=== PATIENT | male | born 1930 | race Caucasian/White ===

== ENCOUNTER 2016-07-14 15:13 | Inpatient (IN) | payer OTHER, MEDICARE ==
[~2016-07-14] VITALS: Ht 182.9 cm; Wt 79.8 kg
[~2016-07-14 15:13] MED LIST: ADVIL200 M2 PO; ASPIRIN81 M4 PO; MAGNESIUM OXID400 M1 PO; PERCOCET 5-3251 EACH PO; PLAVIX75 M1 PO
--- NOTE | 2016-07-14 15:33 | NUR ---
PT TO ER WITH COMPLAINTS OF PAIN AND AN INFECTION IN R FOOT. PT STATES THAT HE HAD ANGIOGRAM FRIDAY ON R LEG BY VASCULAR DR ON FRIDAY AND THAT THEY WENT IN AND CLEARED BLOCKAGE, BUT YESTERDAY HIS R FOOT STARTED TO SWELL AND R MIDDLE TOE IS RED AND LOOKS INFECTED
--- NOTE | 2016-07-14 15:48 | NUR ---
PT TO ROOM12, AWAITING PROVIDER EVAL.
--- NOTE | 2016-07-14 16:09 | NUR ---
PT EVALUATED BY MD FAINA. BLOOD DRAWN AND SENT TO LAB-[facility].
--- NOTE | 2016-07-14 16:09 | ED GENERAL ADULT ---
History of Present Illness General Chief Complaint: General Adult Stated Complaint: SENT BY DR BOWEN FOR EVL OF RT FOOT Source: patient, family, old records Exam Limitations: no limitations Vital Signs & Intake/Output Vital Signs & Intake/Output Vital Signs Date Time Temp Pulse Resp B/P Pulse O2 O2 Flow FiO2 Ox Delivery Rate 07/14 1527 97.5 92 18 156/76 97 Room Air Allergies Coded Allergies: No Known Allergies (03/13/16) Reconcile Medications Aspirin (Aspirin*) 81 MG TAB.CHEW 1 TAB PO DAILY HEART HEALTH (Reported) Clopidogrel Bisulfate (Plavix) 75 MG TABLET 1 TAB PO DAILY anti clot Ibuprofen (Advil) 200 MG TABLET 2 TAB PO DAILY PAIN (Reported) Magnesium Oxide 400 MG TABLET 1 TAB PO DAILY HEART (Reported) Oxycodone HCl/Acetaminophen (Percocet 5-325 MG Tablet) 5 MG-325 MG TABLET 1-2 TAB PO Q4-6 PRN PAIN Core Measure Meds Pre-Hospital aspirin Triage Note: PT TO ER WITH COMPLAINTS OF PAIN AND AN INFECTION IN R FOOT. PT STATES THAT HE HAD ANGIOGRAM FRIDAY ON R LEG BY VASCULAR DR ON FRIDAY AND THAT THEY WENT IN AND CLEARED BLOCKAGE, BUT YESTERDAY HIS R FOOT STARTED TO SWELL AND R MIDDLE TOE IS RED AND LOOKS INFECTED Triage Nurses Notes Reviewed? yes Onset: Evening Duration: hour(s):, constant, continues in ED, getting worse Timing: recent history Injury Environment: home Severity: severe Modifying Factors: Improves With: medication, rest. Worsens With: movement. HPI: 4 days prior to admission patient had right lower extremity angiogram with procedure to open obstructed vessel. 1 day prior to admission he complains of increasing swelling redness pain to the right foot. He denies fever chills vomiting diarrhea abdominal pain chest pain shortness breath headache dysuria bleeding. Past History Travel History Traveled to [place] past 21 day No Medical History Any Pertinent Medical History? 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 No Review of Systems Review of Systems Constitutional: Reports: no symptoms. EENTM: Reports: no symptoms. Respiratory: Reports: no symptoms. Cardiovascular: Reports: no symptoms. GI: Reports: no symptoms. Genitourinary: Reports: no symptoms. Musculoskeletal: Reports: see HPI, joint pain, joint swelling. Skin: Reports: see HPI, rash. Neurological/Psychological: Reports: no symptoms. Hematologic/Endocrine: Reports: no symptoms. Immunologic/Allergic: Reports: no symptoms. All Other Systems: Reviewed and Negative Physical Exam Physical Exam General Appearance: well developed/nourished, alert, awake, anxious, moderate distress Head: atraumatic, normal appearance Eyes: Bilateral: normal appearance, PERRL, EOMI. Ears, Nose, Throat: normal pharynx, normal ENT inspection, hearing grossly normal Neck: normal inspection, supple, full range of motion, no midline tenderness Respiratory: normal breath sounds, chest non-tender, no respiratory distress, quiet respiration, lungs clear Cardiovascular: regular rate/rhythm, normal peripheral pulses, norml femoral pulses equa Peripheral Pulses: 4+ carotid (R), 4+ carotid (L) Gastrointestinal: normal bowel sounds, soft, non-tender, no organomegaly Back: normal inspection, normal range of motion Extremities: pedal edema, slow capillary refill, swelling, tenderness Neurologic/Psych: no motor/sensory deficits, awake, alert, oriented x 3, normal 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 Skin: rash, erythema edema right middle toe the lateral foot and ankle tips of second and third toes with gangrenous appearing black discoloration Lymphatic: no anterior cervical amy Core Measures ACS in differential dx? No CVA/TIA Diagnosis: No Severe Sepsis Present: No Septic Shock Present: No Progress Differential Diagnoses I considered the following diagnoses in my evaluation of the patient: Cellulitis peripheral arterial disease osteomyelitis Plan of Care: Orders Procedure Date/time Status Regular Diet 07/14 D Active Patient Data 07/14 1801 Active OXYGEN SETUP (GEN) 07/14 1742 Active Saline Lock 07/14 1742 Active Admit to inpatient 07/14 174 Active Vital Signs 07/14 1743 Active Activity/Ambulation 07/14 174 Active BLOOD CULTURE 07/14 174 Active Code Status 07/14 174 Active HIGH SENSITIVITY CRP 07/14 1559 Complete WESTERGREN SED RATE 07/14 1559 Complete COMPREHENSIVE METABOLIC PANEL 07/14 155 Complete CBC WITHOUT DIFFERENTIAL 07/14 155 Complete Current Medications Sig/Ramon Start time Last Medication Dose Stop Time Status Admin Morphine Sulfate 4 MG ONCE ONE 07/14 1814 UNVr (Morphine) 07/15 1815 Laboratory Tests 07/14/16 1610: Anion Gap 11, Estimated GFR > 60, BUN/Creatinine Ratio 21.3, Glucose 187 H, Calcium 9.4, Total Bilirubin 0.6, AST 23, ALT 32, Alkaline Phosphatase 74, C- React Prot High Sens > 15.0 H, Total Protein 7.1, Albumin 4.2, Globulin 2.9, Albumin/Globulin Ratio 1.4, CBC w Diff NO MAN DIFF REQ, RBC 4.68 L, MCV 84.6, MCH 28.6, RDW 14.9 H, MPV 6.6 L, Gran % 78.3 H, Lymphocytes % 13.1 L, Monocytes % 7.6, Eosinophils % 0.7, Basophils % 0.3, Absolute Granulocytes 4.3, Absolute Lymphocytes 0.7 L, Absolute Monocytes 0.4, Absolute Eosinophils 0, Absolute Basophils 0, PUBS MCHC 33.8, ESR Westergren 63 H Microbiology 07/14 1800 BLOOD: Blood Culture - RECD 07/14 1750 BLOOD: Blood Culture - RECD Diagnostic Imaging: Viewed by Me: Radiology Read. Discussed w/RAD: Radiology Read. Radiology Impression: Soft tissue swelling of the right foot without soft tissue emphysema. Within the forefoot, soft tissue swelling is most pronounced in the third toe. There is a small area of apparent demineralization in the lateral aspect of the tuft of the third distal phalanx. Osteomyelitis is suspected. Initial ED EKG: none Departure Departure Time of Disposition: 1742 Disposition: STILL A PATIENT Condition: Stable Clinical Impression Primary Impression: Acute osteomyelitis of toe of right foot Referrals: ISA DERAS,EVELYN Spears (PCP/Family) Departure Forms: Customer Survey General Discharge Information Admission Note Spoke With: EFREN WATERS MD Documentation of Exam: Documentation of any treatments & extenuating circumstances including Concerns Regarding Discharge (functional status, medication knowledge or non-compliance, living conditions, etc.) that warrant an admission rather than observation: IV antibiotics analgesia podiatry evaluation vascular surgery evaluation follow cultures medication adjustment continuing care discharge planning Critical Care Note Critical Care Note Critical Care Time: non-applicable
--- NOTE | 2016-07-14 16:14 | NUR ---
RAD AT BEDSIDE FOR FOOT XRAY.
[2016-07-14 16:18] LABS: ABSOLUTE BASOPHIL COUNT 0 /CUMM (0.0-0.2); ABSOLUTE EOSINOPHIL COUNT 0 /CUMM (0.0-0.7); ABSOLUTE GRANULOCYTE CT 4.3 /CUMM (1.4-6.5); ABSOLUTE LYMPH COUNT 0.7 /CUMM (1.2-3.4); ABSOLUTE MONOCYTE COUNT 0.4 /CUMM (0.10-0.60); HEMATOCRIT 39.6 % (42-52); MEAN CORPUSCULAR HGB 28.6 PG (27.0-31.0); MEAN CORPUSCULAR HGB CONC 33.8 G/DL (33.0-37.0); MEAN CORPUSCULAR VOLUME 84.6 FL (80.0-94.0); MEAN PLATELET VOLUME 6.6 FL (7.4-10.4); PLATELET COUNT 209 /CUMM (130-400); RBC DISTRIBUTION WIDTH 14.9 % (11.5-14.5); RED BLOOD CELL CT 4.68 /CUMM (4.70-6.10); WHITE BLOOD CELL COUNT 5.5 /CUMM (4.8-10.8)
[2016-07-14 16:21] LABS: BASOPHIL % 0.3 % (0.0-2.0); EOSINOPHIL % 0.7 % (0-5); GRANULOCYTE % 78.3 % (42.2-75.2)
--- NOTE | 2016-07-14 16:50 | RADIOLOGY REPORT ---
EXAMINATION: XR FOOT, RIGHT CLINICAL INFORMATION: Peripheral vascular disease. Gangrene at tip of the third toe and edema/erythema of the lateral midfoot. Evaluate for osteomyelitis. COMPARISON: None TECHNIQUE: Right foot, 3 views FINDINGS: Soft there is soft tissue swelling of the foot and, within the forefoot, soft tissue swelling is most pronounced in the third toe. No soft tissue emphysema. There is an area of cortical bone at the lateral aspect of the tuft of the distal phalanx of the third toe that is suboptimally defined. Although there could be osteopenia in reaction to overlying soft tissue inflammation, relatively early osteomyelitis involving the distal phalanx could produce this appearance. There is no osteosclerosis or periostitis. Bones have normal alignment throughout the foot. Enthesophyte formation is seen at the dorsal and plantar surface of the calcaneus, and there is intratendinous ossification of the Achilles at its insertion. IMPRESSION: Soft tissue swelling of the right foot without soft tissue emphysema. Within the forefoot, soft tissue swelling is most pronounced in the third toe. There is a small area of apparent demineralization in the lateral aspect of the tuft of the third distal phalanx. Osteomyelitis is suspected.
--- NOTE | 2016-07-14 17:43 | NUR ---
MD FAINA AT BEDSIDE TO DISCUSS POC.
--- NOTE | 2016-07-14 18:03 | NUR ---
BLOOD CULTURES 2 SETS DRAWN AND SENT TO LAB. UNASYN INFUSING PER EMAR.
--- NOTE | 2016-07-14 18:04 | History & Physical ---
General Information and HPI MD Statement: I have seen and personally examined ZARINA CANAS and documented this H&P. The patient is a 86 year old M who presented with a patient stated chief complaint of [right foot swelling and pain]. Source of Information: patient Exam Limitations: no limitations History of Present Illness: Mr. Canas is a 86-year-old gentleman with a PMH of peripheral neuropathy, osteoarthritis, PVD/PAD S/P left popliteal to posterior tibial artery bypass in the setting of left great toe gangrene (02/16/2016), recent angiogram on 07/11/2016 for right middle toe infection who presents with complaints of worsening pain and redness in his toe. Since the angiogram on reports doing well and denied any fever, chills or worsening pain. He had been able to ambulate without any limitations however this afternoon he had a sudden onset and worsening pain that he described as a stabbing/burning sensation in the middle toe on the right foot that made it difficult for him to walk due to exquisite tenderness in the balls of his feet. He did take 1 Percocet which was able to relieve the pain from 9/10 down to 2/ 10. He contacted his vascular surgeon Dr. Bolton and was referred to the ER for further evaluation. He denies any nausea, vomiting, abdominal pain, fevers, chills, chest pain, palpitations, sweating, drainage from his toe. Allergies/Medications Allergies: Coded Allergies: No Known Allergies (03/13/16) Home Med list Aspirin (Aspirin*) 81 MG TAB.CHEW 1 TAB PO DAILY HEART HEALTH (Reported) Clopidogrel Bisulfate (Plavix) 75 MG TABLET 1 TAB PO DAILY anti clot Docusate Sodium (Stool Softener) 100 MG CAPSULE 1 CAP PO DAILY STOOL SOFTENER (Reported) Magnesium Oxide 400 MG TABLET 1 TAB PO DAILY HEART (Reported) Oxycodone HCl/Acetaminophen (Oxycodone-Acetaminophen 5-325) 5 MG-325 MG TABLET 1 TAB PO PRN PAIN (Reported) Past History Travel History Traveled to [place] past 21 day No Medical History Neurological: peripheral neuropathy EENT: NONE Cardiovascular: NONE Respiratory: NONE Gastrointestinal: NONE Hepatic: NONE Renal: NONE Musculoskeletal: ARTHRITIS Psychiatric: NONE Endocrine: NONE Blood Disorders: NONE 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 EENTM: Reports: no symptoms. Cardiovascular: Reports: no symptoms. Respiratory: Reports: no symptoms. GI: Reports: no symptoms. Genitourinary: Reports: no symptoms. Musculoskeletal: Reports: see HPI. Skin: Reports: see HPI. Neurological/Psychological: Reports: see HPI. Exam & Diagnostic Data Last 24 Hrs of Vital Signs/I&O Vital Signs Date Time Temp Pulse Resp B/P Pulse O2 O2 Flow FiO2 Ox Delivery Rate 07/14 1847 97.2 95 18 154/75 98 Room Air 07/14 1527 97.5 92 18 156/76 97 Room Air Intake & Output 07/14 1600 07/14 0800 07/14 0000 Intake Total Output Total Balance Patient 175 lb Weight Physical Exam General Appearance Alert, Cooperative, No Acute Distress Skin diffuse erythema over the right middle great toe spread proximally towards the dorsum of the right foot approximately 12 cm. Skin on the right foot is slightly warmer to touch. Posterior tibial pulses are present bilaterally HEENT Mucous Membr. moist/pink, Left eye strabismus. 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 Cardiovascular Regular Rate, Normal S1, Normal S2 Lungs Clear to Auscultation, Normal Air Movement Abdomen Normal Bowel Sounds, Soft, No Tenderness Neurological Normal Speech, Normal Tone, Sensation Intact Extremities Edema localized on the distal aspects of the feet Last 24 Hrs of Labs/Justin: Laboratory Tests 07/14/16 1610: Anion Gap 11, Estimated GFR > 60, BUN/Creatinine Ratio 21.3, Glucose 187 H, Calcium 9.4, Total Bilirubin 0.6, AST 23, ALT 32, Alkaline Phosphatase 74, C- React Prot High Sens > 15.0 H, Total Protein 7.1, Albumin 4.2, Globulin 2.9, Albumin/Globulin Ratio 1.4, CBC w Diff NO MAN DIFF REQ, RBC 4.68 L, MCV 84.6, MCH 28.6, RDW 14.9 H, MPV 6.6 L, Gran % 78.3 H, Lymphocytes % 13.1 L, Monocytes % 7.6, Eosinophils % 0.7, Basophils % 0.3, Absolute Granulocytes 4.3, Absolute Lymphocytes 0.7 L, Absolute Monocytes 0.4, Absolute Eosinophils 0, Absolute Basophils 0, PUBS MCHC 33.8, ESR Westergren 63 H Microbiology 07/14 1800 BLOOD: Blood Culture - RECD 07/14 1750 BLOOD: Blood Culture - RECD Diagnostic Data Other Results X-ray of right foot: Soft tissue swelling of the right foot without soft tissue emphysema. Within the forefoot, soft tissue swelling is most pronounced in the third toe. There is a small area of apparent demineralization in the lateral aspect of the tuft of the third distal phalanx. Osteomyelitis is suspected. Assessment/Plan Assessment: 86-year-old gentleman with a PMH of peripheral neuropathy, osteoarthritis, PVD/ PAD S/P left popliteal to posterior tibial artery bypass in the setting of left great toe gangrene (02/16/2016), recent angiogram on 07/11/2016 for right middle toe infection who presents with complaints of worsening pain and redness in his toe. VS admission: BP 156/76, HR 92, RR 18, SPO2 97% on RA, T 97.5 Pertinent labs: WBC 5.5, H&H 13.4/39.6, platelets 209, BUN/CR 17/0.8, glucose 187 CRP: > 15.0 ESR: 63 Problem list: 1. Right middle toe cellulitis/questionable osteomyelitis 2. PVD/PAD with recent angiogram 3. Pain management Plan: * Admit to general medicine * We'll plan to obtain MRI of the right foot in the a.m. to better assess for possible osteomyelitis * Vascular surgery is on board at this time * We'll obtain a dietary consult with Dr. Elizabeth in the a.m. * We'll keep the patient NPO pending discussion with Dr. Elizabeth for possible intervention * Patient has been seen by Dr. Ybarra in the past. Records indicate a Hilda scan nuclear stress test in October 2015 that was normal. Will obtain an EKG in the morning and follow-up with cardiology for risk stratification if there is any plan for debridement in the OR * Coag the a.m. * Patient did receive 1 dose of Unasyn in the ED prior to blood cultures being drawn. In setting of no leukocytosis, stable vital signs we'll hold off antibiotics pending MRI results * Lipid panel in the a.m. * Pain management with Tylenol, Percocet, morphine for escalating pain * Continue with aspirin 81 mg and Plavix 75 mg daily for history of PVD * NPO. Gentle hydration with NS 75 mL 1 * DVT prophylaxis: No ALPs in the setting of PVD. We'll hold off pharmacological anticoagulation until MRI results and discussion with Dr Gold for possible OR * CODE STATUS: DNR/DNI AM TEAM: Start pharmacological anticoagulation if no plan to go to OR As Ranked By This Provider Problem List: 1. Acute osteomyelitis of toe of right foot 2. PAD (peripheral artery disease) 3. Pain management Core Measures/Miscellaneous Acute Coronary Syndrome ACS Diagnosis: No Cerebrovascular Accident CVA/TIA Diagnosis: No Congestive Heart Failure CHF Diagnosis: No Venous Thromboembolism VTE Risk Factors: Age > 40 [facility] prophylaxis d/t: Lower limb ischemia No VTE Pharm Prophylaxis d/t: Medical contraindication VTE Diagnosis: No VTE Type: NONE VTE Confirmed by (Test): NONE Comment: Planned OR tomorrow Severe Sepsis Severe Sepsis Present: No Septic Shock Septic Shock Present: No Miscellaneous Documentation Attending Case Discussed With: EFREN WATERS MD Primary Care Physician: EVELYN MOSS MD Patient sees these Specialists Dr Bolton (vascular surgeon) Level of Patient Care: General Medicine Resident Review Statement Resident Statement: examined this patient, discussed with sport internship, agreed with sport internship, reviewed EMR data (avail), discussed with nursing, reviewed images
--- NOTE | 2016-07-14 18:16 | Admission Certification ---
Admission Certification Certification Statement - As attending physician, I certify that at the time of - admission, based on clinical presentation, severity of - symptoms, need for further diagnostic testing and - therapeutic interventions, and risk of adverse outcomes - without in-hospital treatment, in my clinical assessment, - this patient requires an acute hospital stay for a minimum - of two nights or longer. I have also considered psychsocial - factors such as support system, advanced age, financial - issues, cognitive issues, and failed out-patient treatments, - past re-admission history, safety of patient, and lack of - compliance as applicable. Specific rationale supporting this admission is: Swelling of the right middle toe red and a patient with peripheral vascular disease x-ray suggestive of osteomyelitis
--- NOTE | 2016-07-14 18:20 | PN- Att Addend ---
Attending Addendum Attending Brief Note 86-year-old white male with peripheral vascular disease just had seen his vascular doctor apparently had studies in the right leg. For the last able to the right middle toe is red and swollen and tender, comes to the ER. His affect febrile his white count is normal but the x-ray of the foot showed that the toe swollen the bone has some abnormalities very possibly related to osteomyelitis patient will be admitted will be pancultured will be seen by vascular and podiatry. If necessary we'll start antibiotic therapy. Laboratory Tests 07/14 1610 Chemistry Sodium (137 - 145 mmol/L) 140 Potassium (3.5 - 5.1 mmol/L) 4.1 Chloride (98 - 107 mmol/L) 99 Carbon Dioxide (22 - 30 mmol/L) 30 Anion Gap (5 - 16) 11 BUN (9 - 20 mg/dL) 17 Creatinine (0.7 - 1.2 mg/dL) 0.8 Estimated GFR (>60 ml/min) > 60 BUN/Creatinine Ratio (7 - 25 %) 21.3 Glucose (65 - 99 mg/dL) 187 H Calcium (8.4 - 10.2 mg/dL) 9.4 Total Bilirubin (0.2 - 1.3 mg/dL) 0.6 AST (17 - 59 U/L) 23 ALT (21 - 72 U/L) 32 Alkaline Phosphatase (< 127 U/L) 74 C-React Prot High Sens (1.0 - 3.0 mg/L) > 15.0 H Total Protein (6.3 - 8.2 g/dL) 7.1 Albumin (3.5 - 5.0 g/dL) 4.2 Globulin (1.9 - 4.2 gm/dL) 2.9 Albumin/Globulin Ratio (1.1 - 2.2 %) 1.4 Hematology CBC w Diff NO MAN DIFF REQ WBC (4.8 - 10.8 /CUMM) 5.5 RBC (4.70 - 6.10 /CUMM) 4.68 L Hgb (14.0 - 18.0 G/DL) 13.4 L Hct (42 - 52 %) 39.6 L MCV (80.0 - 94.0 FL) 84.6 MCH (27.0 - 31.0 PG) 28.6 RDW (11.5 - 14.5 %) 14.9 H Plt Count (130 - 400 /CUMM) 209 MPV (7.4 - 10.4 FL) 6.6 L Gran % (42.2 - 75.2 %) 78.3 H Lymphocytes % (20.5 - 51.1 %) 13.1 L Monocytes % (1.7 - 9.3 %) 7.6 Eosinophils % (0 - 5 %) 0.7 Basophils % (0.0 - 2.0 %) 0.3 Absolute Granulocytes (1.4 - 6.5 /CUMM) 4.3 Absolute Lymphocytes (1.2 - 3.4 /CUMM) 0.7 L Absolute Monocytes (0.10 - 0.60 /CUMM) 0.4 Absolute Eosinophils (0.0 - 0.7 /CUMM) 0 Absolute Basophils (0.0 - 0.2 /CUMM) 0 PUBS MCHC (33.0 - 37.0 G/DL) 33.8 ESR Westergren (0 - 10 MM) 63 H
--- NOTE | 2016-07-14 18:22 | NUR ---
PT MEDICATED WITH MORPHINE PER EMAR FOR R FOOT PAIN 11/18. SURGICAL PA AT BEDSIDE FOR PT EVAL.
[2016-07-14] MEDS ORDERED: STOOL SOFTENER100 M3 PO (18:35)
[2016-07-14] MEDS ORDERED: OXYCODONE-ACET1 EACH PO (18:36)
--- NOTE | 2016-07-14 18:58 | Cons- Vascular Surgery ---
General Information and HPI Consulting Request Date of Consult: 07/14/16 Requested By: EFREN OROURKE MD Reason for Consult: history of peripheral vascular disease with noew R 3rd toe questionable osteo Source of Information: patient Exam Limitations: no limitations History of Present Illness: Mr Antoine is an 86yo male with a history of PAD. He underwent a left fem/tib bypass in March of 2016. He was doing well on asa 81mg daily and plavix 75mg po daily while having an ulcer on the R 3rd toe followed by prisca. About one month ago, he had a debridement of this toe at [facility]. He was discharged from wound care follow up about 2 weeks ago. He went to see Dr Elizabeth of podiatry last week because he wanted to follow up with him as he had met him at his prior procedure. This prompted a consult back to Dr Bolton of the Vascular service. 4 days ago, an angio was performed by Dr Marie and per the patient a "new device" was used which helped open up a blockage. Since yesterday, he noticed worsening discoloration and pain of the 3rd R toe. Today the pain became severe so he contacted the Vascular Surgery service and spoke to Dr Cheung. He the presented to [facility] and an Xray demonstrates questionable osteo. He is therefore being admitted to Dr Orourke (covering for Dr Chairez) for IV antibiotics and vascular is contacted for recommendations. On examination, he is comfortable after having morphine. No specific complaints at this time. Allergies/Medications Allergies: Coded Allergies: No Known Allergies (03/13/16) Home Med List: Aspirin (Aspirin*) 81 MG TAB.CHEW 1 TAB PO DAILY HEART HEALTH (Reported) Clopidogrel Bisulfate (Plavix) 75 MG TABLET 1 TAB PO DAILY anti clot Docusate Sodium (Stool Softener) 100 MG CAPSULE 1 CAP PO DAILY STOOL SOFTENER (Reported) Magnesium Oxide 400 MG TABLET 1 TAB PO DAILY HEART (Reported) Oxycodone HCl/Acetaminophen (Oxycodone-Acetaminophen 5-325) 5 MG-325 MG TABLET 1 TAB PO PRN PAIN (Reported) Past History Medical History Neurological: peripheral neuropathy EENT: NONE Cardiovascular: peripheral arterial disease BLE Respiratory: NONE Gastrointestinal: NONE Hepatic: NONE Renal: NONE Musculoskeletal: ARTHRITIS Psychiatric: NONE Endocrine: NONE Blood Disorders: NONE 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 Home ETOH Use: denies use Illicit Drug Use: denies illicit drug use Functional Ability ADLs Independent: dressing, eating, toileting, bathing. Ambulation: independent IADLs Independent: shopping, housework, finances, food prep, telephone, transportation , medication admin. Review of Systems Review of Systems: Pain at 3rd right toe - see HPI, otherwise unremarkable Exam & Diagnostic Data Vital Signs and I&O Vital Signs Date Time Temp Pulse Resp B/P Pulse O2 O2 Flow FiO2 Ox Delivery Rate 07/14 1527 97.5 92 18 156/76 97 Room Air Intake & Output 07/14 1600 07/14 0807/14 0000 07/13 1600 07/13 0807/13 0000 Intake Total Output Total Balance Patient 175 lb Weight Physical Exam: General: alert and oriented times three Ext: warm, no edema LLE - 2+ palpable popliteal, 1+ palpable PT, DP non-palp faintly dopplerable RLE - 2+ palpable popliteal, faintly dopplerable DP, non dopplerable PT 3rd toe discolored entirely - deep red, tender, positive movement, no swelling, small ulceration at plantar tip with eschar, no drainage, mild erythema extending lateral to toe to mid foot Last 24 Hours of Labs: Laboratory Tests 07/14 1610 Chemistry Sodium (137 - 145 mmol/L) 140 Potassium (3.5 - 5.1 mmol/L) 4.1 Chloride (98 - 107 mmol/L) 99 Carbon Dioxide (22 - 30 mmol/L) 30 Anion Gap (5 - 16) 11 BUN (9 - 20 mg/dL) 17 Creatinine (0.7 - 1.2 mg/dL) 0.8 Estimated GFR (>60 ml/min) > 60 BUN/Creatinine Ratio (7 - 25 %) 21.3 Glucose (65 - 99 mg/dL) 187 H Calcium (8.4 - 10.2 mg/dL) 9.4 Total Bilirubin (0.2 - 1.3 mg/dL) 0.6 AST (17 - 59 U/L) 23 ALT (21 - 72 U/L) 32 Alkaline Phosphatase (< 127 U/L) 74 C-React Prot High Sens (1.0 - 3.0 mg/L) > 15.0 H Total Protein (6.3 - 8.2 g/dL) 7.1 Albumin (3.5 - 5.0 g/dL) 4.2 Globulin (1.9 - 4.2 gm/dL) 2.9 Albumin/Globulin Ratio (1.1 - 2.2 %) 1.4 Hematology CBC w Diff NO MAN DIFF REQ WBC (4.8 - 10.8 /CUMM) 5.5 RBC (4.70 - 6.10 /CUMM) 4.68 L Hgb (14.0 - 18.0 G/DL) 13.4 L Hct (42 - 52 %) 39.6 L MCV (80.0 - 94.0 FL) 84.6 MCH (27.0 - 31.0 PG) 28.6 RDW (11.5 - 14.5 %) 14.9 H Plt Count (130 - 400 /CUMM) 209 MPV (7.4 - 10.4 FL) 6.6 L Gran % (42.2 - 75.2 %) 78.3 H Lymphocytes % (20.5 - 51.1 %) 13.1 L Monocytes % (1.7 - 9.3 %) 7.6 Eosinophils % (0 - 5 %) 0.7 Basophils % (0.0 - 2.0 %) 0.3 Absolute Granulocytes (1.4 - 6.5 /CUMM) 4.3 Absolute Lymphocytes (1.2 - 3.4 /CUMM) 0.7 L Absolute Monocytes (0.10 - 0.60 /CUMM) 0.4 Absolute Eosinophils (0.0 - 0.7 /CUMM) 0 Absolute Basophils (0.0 - 0.2 /CUMM) 0 PUBS MCHC (33.0 - 37.0 G/DL) 33.8 ESR Westergren (0 - 10 MM) 63 H Imaging Results: R foot XR Soft tissue swelling of the right foot without soft tissue emphysema. Within the forefoot, soft tissue swelling is most pronounced in the third toe. There is a small area of apparent demineralization in the lateral aspect of the tuft of the third distal phalanx. Osteomyelitis is suspected. Assessment/Plan Assessment/Plan 86 yo male with severe pad now presents after angio with questionable osteo of 3rd Right toe afebrile, normal wbc Discussed with Dr Cheung who has also spoken to the patient He is being admitted to the medical service arterial duplex ordered - will follow up - likely to be performed tomorrow Dr Bolton to see in am continue aspirin/plavix and all home meds further recommendations to follow Copies To: JAX DERAS,ABA LUCAS Consult Acknowledgment - Thank you for your consult request.
--- NOTE | 2016-07-14 19:04 | NUR ---
PT ASSIGNED TO ROOM 235-2
--- NOTE | 2016-07-14 19:32 | NUR ---
REPORT GIVEN TO ENMA BURGER
--- NOTE | 2016-07-14 19:38 | NUR ---
[facility] CALLED FOR TRANSPORT.
[2016-07-14 22:21] VITALS: BP 142/70
--- NOTE | 2016-07-14 22:26 | NUR ---
PATIENT ARRIVED TO UNIT AT 2007 VIA STRETCHER. PATIENT A+Ox3 AND ON RA. PT ORIENTED TO CALL CUMMINGS, ROOM, STAFF, BATHROOM, SURROUNDINGS. ADMISSION ASSESSMENT COMPLETE. PT COMPLAINED OF PAIN TO R MIDDLE TOE; MEDICATED PER EMAR. NO FURTHER COMPLAINTS AT THIS TIME. WILL CONTINUE TO CLOSELY MONITOR.
--- NOTE | 2016-07-15 07:10 | PN- Housestaff ---
TONY DERAS,[facility] 07/15/16 0710: Subjective Follow-up For: right foot swelling and pain Subjective: I saw and examined Mr Antoine this am, he is awake and oriented in no distress, has increased pain in the right third toe that is controlled by morphine. Denies cough, wheezing, SOB, reports abdominal pain off and on but no changes in stool, pain not related to food. denies chest pain, palpitation, or dizziness. Review of Systems Constitutional: Denies: chills, fever, weakness. 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 Cardiovascular: Denies: chest pain, palpitations. Respiratory: Denies: cough, short of breath, sputum production. Gastrointestinal: Reports: abdominal pain. Denies: bloating, constipation, nausea, bloody stool, changes in stool, vomiting. Genitourinary: Reports: no symptoms. Musculoskeletal: Reports: joint pain (right 3rd toe pain). Denies: back pain. Skin: Reports: change in skin color, erythema, lesions. Neurological/Psychological: Reports: no symptoms. Objective Last 24 Hrs of Vital Signs/I&O Vital Signs Date Time Temp Pulse Resp B/P Pulse O2 O2 Flow FiO2 Ox Delivery Rate 07/15 0711 98.8 98 20 144/88 96 Room Air 07/14 2221 98.0 88 20 142/70 97 Room Air 07/14 1847 97.2 95 18 154/75 98 Room Air 07/14 1527 97.5 92 18 156/76 97 Room Air Intake & Output 07/15 1600 / 0800 07/15 0000 Intake Total 600 560 Output Total 300 Balance 300 560 Intake, IV 600 100 Intake, Oral 0 460 Output, Urine 300 Patient 80.739 kg Weight Physical Exam General Appearance: Alert, Oriented X3, Cooperative, No Acute Distress Skin: there is erythema and tenderness of the entire right 3rd toe with necrotic ulcer at the top, there is erythema 1x1 cm on the left 4th toe. HEENT: Atraumatic, left eye blindness. Neck: Supple Cardiovascular: Regular Rate, Normal S1, Normal S2, No Murmurs Lungs: Clear to Auscultation, Normal Air Movement Abdomen: Soft, No Tenderness Neurological: Normal Speech, Normal Tone Extremities: No Edema, Normal Pulses Vascular: Pulses Symmetrical Current Medications: Current Medications Sig/Ramon Start time Last Medication Dose Route Stop Time Status Admin Acetaminophen 650 MG Q6P PRN 07/14 1914 AC PO Ampicillin Sodium/ 0 .STK-MED ONE 07/14 173 DC Sulbactam Sodium .ROUTE Ampicillin Sodium/ 3,000 MG ONCE ONE 07/14 173 DC 07/14 Sulbactam Sodium IV 07/14 175 1803 Sodium Chloride 100 ML Aspirin 81 MG DAILY 07/15 1000 AC PO Clopidogrel Bisulfate 75 MG DAILY 07/15 1000 AC PO Magnesium Oxide 400 MG DAILY 07/15 1000 AC PO Morphine Sulfate 2 MG Q4P PRN 07/14 1914 AC 07/15 IV 0229 Morphine Sulfate 4 MG ONCE ONE 07/14 1814 DC / IV 07/14 181 182 Morphine Sulfate 0 .STK-MED ONE 07/14 1809 DC .ROUTE Oxycodone/ 1 TAB Q6P PRN 07/14 1914 AC 07/14 Acetaminophen PO 2053 Patient Medication 1 UNIT ONE NR 07/14 1914 DC Teaching ED 07/14 1930 Sodium Chloride 1,000 ML Q13H 07/14 213 AC 07/14 IV 07/15 1029 2201 Last 24 Hrs of Lab/Justin Results Last 24 Hrs of Labs/Mics: Laboratory Tests 07/15/16 0722: Sodium Pending, Potassium Pending, Chloride Pending, Carbon Dioxide Pending, Anion Gap Pending, BUN Pending, Creatinine Pending, BUN/Creatinine Ratio Pending , Triglycerides Pending, Cholesterol Pending, LDL Cholesterol, Calc Pending, HDL Cholesterol Pending, Cholesterol/HDL Ratio Pending, PT 12.2, INR 1.16, CBC w Diff Pending, WBC Pending, RBC Pending, Hgb Pending, Hct Pending, MCV Pending, MCH Pending, RDW Pending, Plt Count Pending, MPV Pending, PUBS MCHC Pending 07/14/16 1610: Anion Gap 11, Estimated GFR > 60, BUN/Creatinine Ratio 21.3, Glucose 187 H, Calcium 9.4, Total Bilirubin 0.6, AST 23, ALT 32, Alkaline Phosphatase 74, C- React Prot High Sens > 15.0 H, Total Protein 7.1, Albumin 4.2, Globulin 2.9, Albumin/Globulin Ratio 1.4, CBC w Diff NO MAN DIFF REQ, RBC 4.68 L, MCV 84.6, MCH 28.6, RDW 14.9 H, MPV 6.6 L, Gran % 78.3 H, Lymphocytes % 13.1 L, Monocytes % 7.6, Eosinophils % 0.7, Basophils % 0.3, Absolute Granulocytes 4.3, Absolute Lymphocytes 0.7 L, Absolute Monocytes 0.4, Absolute Eosinophils 0, Absolute Basophils 0, PUBS MCHC 33.8, ESR Westergren 63 H Microbiology 07/14 1800 BLOOD: Blood Culture - RECD 07/14 1750 BLOOD: Blood Culture - RECD Assessment/Plan Assessment: 86-year-old gentleman with a PMH of peripheral neuropathy, osteoarthritis, PVD/ PAD S/P left popliteal to posterior tibial artery bypass in the setting of left great toe gangrene (02/16/2016), recent angiogram on 07/11/2016 for right middle toe infection who presents with complaints of worsening pain and redness in his toe. VS admission: BP 156/76, HR 92, RR 18, SPO2 97% on RA, T 97.5 Pertinent labs: WBC 5.5, H&H 13.4/39.6, platelets 209, BUN/CR 17/0.8, glucose 187 CRP: > 15.0 ESR: 63 Lipid panel shows LDL of 67 and HDL of 42. PT:12.2, INR 1.16. Problem list: 1. Right middle toe cellulitis/questionable osteomyelitis 2. PVD/PAD with recent angiogram 3. Pain management Plan: * Plan pending on Surgery (podiatry) to take the patient to the OR. Dr. Elizabeth saw the patient this pm and told us that he won't take him to the OR today. WIll follow his recommendations. (MRI of the right foot is consistent with osteomyelitis.) * Vascular surgery is on board * Patient has been seen by Dr. Ybarra in the past. Records indicate a Hilda scan nuclear stress test in October 2015 that was normal. Cardiology to see the patient for risk stratification if there is any plan for debridement in the OR * Patient did receive 1 dose of Unasyn in the ED prior to blood cultures being drawn. In setting of no leukocytosis, stable vital signs we'll hold off antibiotics pending MRI results. * Pain management with Tylenol, Percocet, morphine for escalating pain * Continue with aspirin 81 mg and Plavix 75 mg daily for history of PVD * DVT prophylaxis: No ALPs in the setting of PVD. We'll hold off pharmacological anticoagulation for possible OR tomorrow am. * CODE STATUS: DNR/DNI Problem List: 1. Acute osteomyelitis of toe of right foot 2. Pain management 3. PAD (peripheral artery disease) 4. S/P femoral-tibial bypass Pain Ratin Pain Location: right middle toe Pain Goal: Pain 4 or less Pain Plan: Tylenol, percocet, morphine Tomorrow's Labs & Rationales: CBC (anemia) EVELYN MOSS MD 07/15/16 1747: Attending MD Review Statement Attending Statement Attending MD Statement: examined this patient, discuss w/resident/PA/PAINTING CONTRACTOR, agreed w/resident/PA/PAINTING CONTRACTOR, reviewed EMR data (avail), reviewed images, amended to note Attending Assessment/Plan: Mr. Antoine was interviewed and examined. His EMR was reviewed including consultations from general surgery, vascular surgery, and podiatry. He remains afebrile and without leukocytosis. Examination of his right foot reveals edema and erythema with distal dry gangrene of his third toe. Petechial rash on the dorsum of his foot is equivocally improved. MRI is consistent with acute osteomyelitis of the distal tuft of the distal phalanx. We are planning an excisional biopsy with cultures in the a.m. We should continue to withhold antibiotics pending obtaining her cultures. We will speak with infectious disease concerning initiation and proper course of antibiotics post his procedure. phalanx. We are planning an excisional biopsy with cultures in the a.m. We should continue to withhold antibiotics pending obtaining her cultures. We will speak with infectious disease concerning initiation and proper course of antibiotics post his procedure.
[2016-07-15 07:11] VITALS: BP 144/88
[2016-07-15 08:18] LABS: PT 12.2 SEC (9.4-12.5)
--- NOTE | 2016-07-15 08:41 | PN- General Surgery ---
Subjective Subjective: Right third toe possible osteomyelitis/cellulitis. Awaiting arterial ultrasound right lower leg and MRI right foot, scheduled today. Patient is having moderate to severe pain requiring IV morphine overnight and this morning. Upon my evaluation his pain is controlled after receiving the IV morphine. He denies any fever chills flulike illness nausea or vomiting. Objective Vital Signs and I&Os Vital Signs Date Time Temp Pulse Resp B/P Pulse O2 O2 Flow FiO2 Ox Delivery Rate 07/15 0711 98.8 98 20 144/88 96 Room Air 07/14 2221 98.0 88 20 142/70 97 Room Air 07/14 1847 97.2 95 18 154/75 98 Room Air 07/14 1527 97.5 92 18 156/76 97 Room Air Intake & Output 07/15 1600 07/15 0800 07/15 0000 07/14 1600 07/14 0800 07/14 0000 Intake Total 600 560 Output Total 300 Balance 300 560 Intake, IV 600 100 Intake, Oral 0 460 Output, Urine 300 Patient 178 lb 175 lb Weight Physical Exam: General: alert and oriented times three Ext: warm, no edema RLE - 2+ palpable popliteal, dopplerable DP, non dopplerable PT 3rd toe dorsum with moderate erythema, plantar service with mild erythema. Ulceration at the distal phalanx, possible early dry gangrene. Small amount of swelling noted throat the toe and into the dorsum of the foot with mild erythema that has been contained within the previously outlined in pen marking. There is no discharge. Assessment/Plan Assessment/Plan Right third toe possible osteomyelitis and dry gangrene at the distal phalanx. -Awaiting performance and results of MRI right foot and arterial arterial duplex scan -Dr. Elizabeth from podiatry to see -Antibiotics held per medicine -Continue antiplatelet therapy with 75 mg of Plavix and 81 mg aspirin -Nothing by mouth for now for possible operating room tonight depending upon results of studies and the availability of surgeon Core Measures/Miscellaneous Venous Thromboembolism VTE Risk Factors: Age > 40 VTE Contraindications: No Contraindications VTE Diagnosis: No VTE Type: NONE VTE Confirmed by (Test): NONE Comment: Planned OR tomorrow Beta Gopi Is Beta Gopi a Home Med? No Antibiotics Is Patient on Antibiotics? No
[2016-07-15 08:55] LABS: ABSOLUTE BASOPHIL COUNT 0 /CUMM (0.0-0.2); ABSOLUTE EOSINOPHIL COUNT 0.1 /CUMM (0.0-0.7); ABSOLUTE GRANULOCYTE CT 4.2 /CUMM (1.4-6.5); ABSOLUTE LYMPH COUNT 0.7 /CUMM (1.2-3.4); ABSOLUTE MONOCYTE COUNT 0.3 /CUMM (0.10-0.60); BASOPHIL % 0.3 % (0.0-2.0); EOSINOPHIL % 1.2 % (0-5); HEMATOCRIT 36.4 % (42-52); MEAN CORPUSCULAR HGB 28.8 PG (27.0-31.0); MEAN CORPUSCULAR HGB CONC 34.3 G/DL (33.0-37.0); MEAN CORPUSCULAR VOLUME 84.1 FL (80.0-94.0); MEAN PLATELET VOLUME 6.6 FL (7.4-10.4); PLATELET COUNT 170 /CUMM (130-400); RBC DISTRIBUTION WIDTH 14.9 % (11.5-14.5); RED BLOOD CELL CT 4.33 /CUMM (4.70-6.10); WHITE BLOOD CELL COUNT 5.4 /CUMM (4.8-10.8)
--- NOTE | 2016-07-15 12:48 | ULTRASOUND REPORT ---
EXAMINATION: US DUPLEX LOWER EXTREMITY ARTERY/GRAFT LIMITED, BILATERAL CLINICAL INFORMATION: Bilateral lower extremity pain. Left lower extremity numbness. History of left bypass graft from the distal femoral artery to the posterior tibial artery. COMPARISON: None TECHNIQUE: Real-time ultrasound and Doppler techniques (integrating B-mode 2-D vascular images, Doppler spectral analysis and color flow Doppler imaging) were utilized to interrogate the lower extremities. FINDINGS: Right lower extremity: Common femoral artery: 90 cm/sec; triphasic waveform Superficial femoral artery proximal: 51 cm/sec; triphasic waveform Superficial femoral artery mid portion: 107 cm/sec; monophasic waveform Superficial femoral artery distal: 37 cm/sec; triphasic but blunted waveform Profunda artery: 83 cm/sec; biphasic waveform Popliteal artery: 108 cm/sec; monophasic blunted waveform Posterior tibial artery: 45 cm/sec; monophasic waveform Anterior tibial artery: 112 cm/sec; monophasic waveform Dorsalis pedis artery: 74 cm/sec; monophasic waveform Left lower extremity: Common femoral artery: 105 cm/sec; biphasic waveform Superficial femoral artery proximal: 103 cm/sec; biphasic waveform Superficial femoral artery mid portion: 75 cm/sec; triphasic waveform Superficial femoral artery distal: 57 cm/sec; triphasic waveform Profunda artery: 80 cm/sec; biphasic waveform Popliteal artery: 30 cm/sec; biphasic waveform The left bypass graft extends from the distal femoral artery to the posterior tibial artery distribution. The graft is patent. The flow within the graft is triphasic. The flow within the posterior tibial artery distal to the graft is monophasic. The [place] anterior tibial artery and dorsalis pedis artery were unable to be seen. ADDITIONAL FINDINGS: None. IMPRESSION: 1. Patent left lower extremity bypass graft extending from the distal femoral artery to the posterior tibial artery distribution. 2. Bilateral peripheral arterial disease. Greater sensitivity and specificity can be obtained with pre-and post exercise PVRs with BHARAT calculations. Also consider dedicated CTA for further anatomical detail.
--- NOTE | 2016-07-15 12:56 | RADIOLOGY REPORT ---
EXAMINATION: XR FOOT, RIGHT CLINICAL INFORMATION: Osteomyelitis of right middle toe. Redness and swelling status post angiogram on . COMPARISON: Right foot films dated 07/14/2016. MRI scan of the right foot dated 07/15/2016. TECHNIQUE: AP, lateral, and oblique views of the right foot. FINDINGS: Diffuse osteopenia. Again noted is indistinctness and subtle erosion of the cortex of the tuft of the distal phalanx of the third digit. Associated prominent soft tissue swelling is seen. The appearance is unchanged from prior exam. There is some superficial calcific densities seen likely associated with the overlying nail of the third digit. No other definite erosive changes noted in the right foot. There is a moderate sized plantar calcaneal spur and a large posterior calcaneal spur at the Achilles tendon insertion site. Slight thickening of the distal Achilles tendon is seen. Mild degenerative changes noted at the first metatarsophalangeal joint and at the interphalangeal joints of all digits. No acute fracture or dislocation is seen. IMPRESSION: 1. Findings are suspicious for osteomyelitis of the tuft of the distal phalanx of the third digit with overlying associated soft tissue swelling. 2. No acute fracture or dislocation. 3. Osteopenia with mild degenerative changes as discussed above.
--- NOTE | 2016-07-15 13:14 | MRI REPORT ---
EXAMINATION: MR RIGHT FOOT WITHOUT CONTRAST CLINICAL INFORMATION: Erythema. Swelling. Recent angiogram showing question osteomyelitis. Osteomyelitis of the right middle toe. COMPARISON: Radiographs dated 07/14/2016. TECHNIQUE: Multiplanar MR imaging was obtained through the right forefoot without intravenous contrast material on a 1.5 Sherri magnet. FINDINGS: The distal phalanx of the right 3rd toe is edematous, with indistinctness of its distal cortical margin and loss of signal intensity at the periphery of the tuft on T1-weighted images. These findings are consistent with acute osteomyelitis. The surrounding soft tissues are edematous. Overlying soft tissue ulceration is likely present at the distal tip. There is intramedullary edema signal within the distal aspect of the middle phalanx without superimposed osteomyelitis. Degenerative arthritis is present in the 1st MTP joint with small marginal osteophytes and articular cartilage loss. There is chronic fragmentation of the medial hallux sesamoid with degenerative intramedullary cystic change at the proximal fragment. The lateral fragment is elongated, potentially due to a prior healed fracture or developmental variation. There is a small effusion at the 1st MTP joint. Intramuscular edema signal is present throughout the forefoot. There is mild dorsal subcutaneous edema. Tendons are intact. IMPRESSION: 1. Osteomyelitis of the distal tuft of the 3rd toe distal phalanx. 2. Mild 1st MTP joint degenerative arthritis.
[2016-07-15 13:59] VITALS: BP 140/89
--- NOTE | 2016-07-15 17:36 | PN- Vascular Surgery ---
Surgical Brief Attending Note Brief Attending Note: VASCULAR ATTENDING NOTE: Agree with the PA note. Briefly 86-year-old male with multiple medical problems and severe PAD. He has had a left leg bypass and now presents with new right foot erythema and dry ulceration. There is a possibility of osteomyelitis. He is being evaluated by podiatry. Vascular surgery is being consulted. PE: AF/VSS EXT: Right lower extremity is perfused, there are no palpable distal pedal pulses. There is streaky erythema of the foot extending towards the ankle with dry gangrene at the tip of the toe. A/P PAD w ulcer or R. foot/osteo./ulceration 1.) Continue local wound care as per podiatry 2.) Patient has undergone recent revascularization of the right leg 3.) Podiatry care and intervention as needed
[2016-07-15 21:56] VITALS: BP 135/70
[2016-07-16 06:35] VITALS: BP 136/72
--- NOTE | 2016-07-16 07:16 | PN- Housestaff ---
See Addendum Subjective Follow-up For: right third toe osteomyelitis Subjective: I saw and examined the patient at bedside this morning, he is lying in bed in no distress, he had a good night's sleep and has no complaints. He does not report any pain on the right middle toe. Denies any fever or chills, shortness of breath, coughing, chest pain, abdominal pain, headache or dizziness. Review of Systems Constitutional: Denies: chills, fever, weakness. EENTM: Denies: see HPI (left eye blindness). Cardiovascular: Denies: chest pain, palpitations. Respiratory: Denies: cough, short of breath, sputum production. Gastrointestinal: Denies: abdominal pain, changes in stool. Genitourinary: Reports: no symptoms. Musculoskeletal: Denies: back pain, joint pain. Skin: Reports: lesions. Neurological/Psychological: Reports: no symptoms. Hematologic/Endocrine: Reports: no symptoms. Objective Last 24 Hrs of Vital Signs/I&O Vital Signs Date Time Temp Pulse Resp B/P Pulse O2 O2 Flow FiO2 Ox Delivery Rate 07/16 0635 97.7 84 20 136/72 98 Room Air 07/15 2350 97 Room Air 07/15 2156 98.2 90 20 135/70 85 / 1359 98.4 84 20 140/89 94 Intake & Output 07/16 1600 07/16 0800 07/16 0000 Intake Total 0 200 Output Total 200 Balance -200 200 Intake, Oral 0 200 Output, Urine 200 Physical Exam General Appearance: Alert, Oriented X3, Cooperative, No Acute Distress Skin: there is necrosis at the tip of the right third toe, as well as erythemaand the entire finger and scaling, erythema is extended towards the flute and lower ankle, there is no tenderness or swelling. HEENT: Atraumatic, EOMI Neck: Supple, No JVD Cardiovascular: Regular Rate, Normal S1, Normal S2 Lungs: Normal Air Movement Abdomen: Soft, No Tenderness Neurological: Normal Speech, Normal Tone Extremities: Normal Pulses, No Tenderness/Swelling Current Medications: Current Medications Sig/Ramon Start time Last Medication Dose Route Stop Time Status Admin Acetaminophen 650 MG Q6P PRN 07/14 1915 AC PO Aspirin 81 MG DAILY 07/15 1000 AC 07/15 PO 0938 Clopidogrel Bisulfate 75 MG DAILY 07/15 1000 AC 07/15 PO 0938 Magnesium Oxide 400 MG DAILY 07/15 1000 AC 07/15 PO 0938 Morphine Sulfate 2 MG Q4P PRN 07/14 1914 AC 07/15 IV 0937 Oxycodone/ 2 TAB Q6P PRN 07/15 1215 AC Acetaminophen PO Oxycodone/ 1 TAB Q6P PRN 07/14 1914 DC 07/14 Acetaminophen PO 2053 Patient Medication 1 ED .STK-MED ONE 07/15 1412 DC Teaching ED 07/15 1413 Sodium Chloride 1,000 ML Q13H 07/14 2130 DC 07/14 IV 07/15 1029 2201 Last 24 Hrs of Lab/Justin Results Last 24 Hrs of Labs/Mics: Laboratory Tests 07/16/16 0630: CBC w Diff NO MAN DIFF REQ, RBC 4.32 L, MCV 84.1, MCH 28.8, RDW 14.7 H, MPV 6.8 L, Gran % 74.7, Lymphocytes % 17.8 L, Monocytes % 6.1, Eosinophils % 1.2, Basophils % 0.2, Absolute Granulocytes 4.0, Absolute Lymphocytes 0.9 L, Absolute Monocytes 0.3, Absolute Eosinophils 0.1, Absolute Basophils 0, PUBS MCHC 34.2 Assessment/Plan Assessment: 86-year-old gentleman with a PMH of peripheral neuropathy, osteoarthritis, PVD/ PAD S/P left popliteal to posterior tibial artery bypass in the setting of left great toe gangrene (02/16/2016), recent angiogram on 07/11/2016 for right middle toe infection who presents with complaints of worsening pain and redness in his toe. VS admission: BP 156/76, HR 92, RR 18, SPO2 97% on RA, T 97.5 Pertinent labs: WBC 5.5, H&H 13.4/39.6, platelets 209, BUN/CR 17/0.8, glucose 187 CRP: > 15.0 ESR: 63 Lipid panel shows LDL of 67 and HDL of 42. PT:12.2, INR 1.16. Problem list: 1. Right middle toe cellulitis/questionable osteomyelitis 2. PVD/PAD with recent angiogram 3. Pain management Plan: * Plan pending on Surgery (podiatry) to take the patient to the OR. Dr. Elizabeth saw the patient yesterday pm and told us that he won't take him to the OR today. WIll follow his recommendations. (MRI of the right foot is consistent with osteomyelitis.) * Vascular surgery is on board * Patient has been seen by Dr. Ybarra in the past. Records indicate a Hilda scan nuclear stress test in October 2015 that was normal. * Patient did receive 1 dose of Unasyn in the ED prior to blood cultures being drawn. In setting of no leukocytosis, stable vital signs we'll hold off antibiotics as it may obscure culture results. * Pain management with Tylenol, Percocet, morphine for escalating pain * Continue with aspirin 81 mg and Plavix 75 mg daily for history of PVD * DVT prophylaxis: No ALPs in the setting of PVD. We'll hold off pharmacological anticoagulation for possible OR tomorrow am. * CODE STATUS: DNR/DNI Problem List: 1. Acute osteomyelitis of toe of right foot 2. PAD (peripheral artery disease) Pain Ratin Pain Location: No pain currently Pain Goal: Pain 4 or less Pain Plan: Tylenol for mild pain, Percocet for moderate to severe pain Tomorrow's Labs & Rationales: CBC (osteomyelitis, watched off antibiotics)
[2016-07-16 08:24] LABS: ABSOLUTE BASOPHIL COUNT 0 /CUMM (0.0-0.2); ABSOLUTE EOSINOPHIL COUNT 0.1 /CUMM (0.0-0.7); ABSOLUTE LYMPH COUNT 0.9 /CUMM (1.2-3.4); ABSOLUTE MONOCYTE COUNT 0.3 /CUMM (0.10-0.60); BASOPHIL % 0.2 % (0.0-2.0); EOSINOPHIL % 1.2 % (0-5); GRANULOCYTE % 74.7 % (42.2-75.2); HEMATOCRIT 36.3 % (42-52); MEAN CORPUSCULAR HGB 28.8 PG (27.0-31.0); MEAN CORPUSCULAR HGB CONC 34.2 G/DL (33.0-37.0); MEAN CORPUSCULAR VOLUME 84.1 FL (80.0-94.0); MEAN PLATELET VOLUME 6.8 FL (7.4-10.4); PLATELET COUNT 184 /CUMM (130-400); RBC DISTRIBUTION WIDTH 14.7 % (11.5-14.5); RED BLOOD CELL CT 4.32 /CUMM (4.70-6.10); WHITE BLOOD CELL COUNT 5.3 /CUMM (4.8-10.8)
--- NOTE | 2016-07-16 11:03 | NUR ---
PATIENT TRANSPORTED TO OR AT 1100. GLASSES LEFT AT BEDSIDE.
--- NOTE | 2016-07-16 11:19 | Cons- Cardiology ---
General Information and HPI Consulting Request Date of Consult: 07/16/16 Requested By: EFREN WATERS MD Reason for Consult: Preoperative cardiac assessment Source of Information: patient, old records Exam Limitations: no limitations History of Present Illness: Mr. Antoine is a very nice 78-year-old white male who is well-known to me. The patient has history of multiple cardiac arrest risk factors and known peripheral arterial disease. From a cardiac standpoint the patient has been stable. This past year, the patient underwent revascularization of his left lower extremity. Prior to those procedures, the patient underwent a full cardiac evaluation including an echocardiogram which showed normal left ventricular function and a pharmacologic nuclear stress test which showed no evidence of ischemia. The patient is now here due to a right toe infection and is scheduled for toe and palpitation at some point in the next 24 hours. Since he was last seen by me in the office, the patient is had no new cardiac symptoms. He has remained active. No other new issues have arisen. Allergies/Medications Allergies: Coded Allergies: No Known Allergies (03/13/16) Home Med List: Aspirin (Aspirin*) 81 MG TAB.CHEW 1 TAB PO DAILY HEART HEALTH (Reported) Clopidogrel Bisulfate (Plavix) 75 MG TABLET 1 TAB PO DAILY anti clot Docusate Sodium (Stool Softener) 100 MG CAPSULE 1 CAP PO DAILY STOOL SOFTENER (Reported) Magnesium Oxide 400 MG TABLET 1 TAB PO DAILY HEART (Reported) Oxycodone HCl/Acetaminophen (Oxycodone-Acetaminophen 5-325) 5 MG-325 MG TABLET 1 TAB PO PRN PAIN (Reported) Past History Travel History Traveled to [place] past 21 day No Medical History Blood Transfusion Hx: No Neurological: peripheral neuropathy, RAYNAUD'S EENT: NONE Cardiovascular: PVD, peripheral arterial disease BLE Respiratory: NONE Gastrointestinal: NONE Hepatic: NONE Renal: NONE Musculoskeletal: ARTHRITIS Psychiatric: NONE Endocrine: NONE Blood Disorders: NONE 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 Home Services at Home: Nursing Smoking Status: Former Smoker ETOH Use: denies use Illicit Drug Use: denies illicit drug use Functional Ability ADLs Independent: dressing, eating, toileting, bathing. Ambulation: independent IADLs Independent: shopping, housework, finances, food prep, telephone, transportation , medication admin. Exam & Diagnostic Data Vital Signs and I&O Vital Signs Date Time Temp Pulse Resp B/P Pulse O2 O2 Flow FiO2 Ox Delivery Rate 07/16 0635 97.7 84 20 136/72 98 Room Air 07/15 2350 97 Room Air 07/15 2156 98.2 90 20 135/70 85 07/15 1359 98.4 84 20 140/89 94 Intake & Output 07/16 0807/16 0000 07/15 1600 07/15 0807/15 0000 Intake Total 0 200 400 600 560 Output Total 200 675 300 Balance -200 200 -275 300 560 Intake, IV 400 600 100 Intake, Oral 0 200 0 0 460 Number 0 Bowel Movements Output, Urine 200 675 300 Patient 178 lb Weight Physical Exam: General Appearance Alert, Cooperative, No Acute Distress Skin diffuse erythema over the right middle great toe spread proximally towards the dorsum of the right foot approximately 12 cm. Skin on the right foot is slightly warmer to touch. Posterior tibial pulses are present bilaterally HEENT Mucous Membr. moist/pink, Left eye strabismus. 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 Cardiovascular Regular Rate, Normal S1, Normal S2, 1 to 2/6 systolic murmur left lower sternal border Lungs Clear to Auscultation, and percussion bilaterally Abdomen Normal Bowel Sounds, Soft, No Tenderness Neurological nonfocal Extremities Edema localized on the distal aspects of the feet Labs/Justin Results: Laboratory Tests 07/16 07/15 0630 0722 Chemistry Sodium (137 - 145 mmol/L) 138 Potassium (3.5 - 5.1 mmol/L) 4.3 Chloride (98 - 107 mmol/L) 102 Carbon Dioxide (22 - 30 mmol/L) 29 Anion Gap (5 - 16) 7 BUN (9 - 20 mg/dL) 11 Creatinine (0.7 - 1.2 mg/dL) 0.8 Estimated GFR (>60 ml/min) > 60 BUN/Creatinine Ratio (7 - 25 %) 13.8 Triglycerides (<150 mg/dL) 147 Cholesterol (< 200 MG/DL) 138 LDL Cholesterol, Calc (65 - 129 mg/dL) 67 HDL Cholesterol (40 - 60 mg/dL) 42 Cholesterol/HDL Ratio (0.00 - 4.88 %) 3 Coagulation PT (9.4 - 12.5 SEC) 12.2 INR (0.90 - 1.17) 1.16 Hematology CBC w Diff NO MAN DIFF REQ NO MAN DIFF REQ WBC (4.8 - 10.8 /CUMM) 5.3 5.4 RBC (4.70 - 6.10 /CUMM) 4.32 L 4.33 L Hgb (14.0 - 18.0 G/DL) 12.4 L 12.5 L Hct (42 - 52 %) 36.3 L 36.4 L MCV (80.0 - 94.0 FL) 84.1 84.1 MCH (27.0 - 31.0 PG) 28.8 28.8 RDW (11.5 - 14.5 %) 14.7 H 14.9 H Plt Count (130 - 400 /CUMM) 184 170 MPV (7.4 - 10.4 FL) 6.8 L 6.6 L Gran % (42.2 - 75.2 %) 74.7 79.0 H Lymphocytes % (20.5 - 51.1 %) 17.8 L 13.0 L Monocytes % (1.7 - 9.3 %) 6.1 6.5 Eosinophils % (0 - 5 %) 1.2 1.2 Basophils % (0.0 - 2.0 %) 0.2 0.3 Absolute Granulocytes (1.4 - 6.5 /CUMM) 4.0 4.2 Absolute Lymphocytes (1.2 - 3.4 /CUMM) 0.9 L 0.7 L Absolute Monocytes (0.10 - 0.60 /CUMM) 0.3 0.3 Absolute Eosinophils (0.0 - 0.7 /CUMM) 0.1 0.1 Absolute Basophils (0.0 - 0.2 /CUMM) 0 0 PUBS MCHC (33.0 - 37.0 G/DL) 34.2 34.3 03/05 1610 Chemistry Sodium (137 - 145 mmol/L) 140 Potassium (3.5 - 5.1 mmol/L) 4.1 Chloride (98 - 107 mmol/L) 99 Carbon Dioxide (22 - 30 mmol/L) 30 Anion Gap (5 - 16) 11 BUN (9 - 20 mg/dL) 17 Creatinine (0.7 - 1.2 mg/dL) 0.8 Estimated GFR (>60 ml/min) > 60 BUN/Creatinine Ratio (7 - 25 %) 21.3 Glucose (65 - 99 mg/dL) 187 H Calcium (8.4 - 10.2 mg/dL) 9.4 Total Bilirubin (0.2 - 1.3 mg/dL) 0.6 AST (17 - 59 U/L) 23 ALT (21 - 72 U/L) 32 Alkaline Phosphatase (< 127 U/L) 74 C-React Prot High Sens (1.0 - 3.0 mg/L) > 15.0 H Total Protein (6.3 - 8.2 g/dL) 7.1 Albumin (3.5 - 5.0 g/dL) 4.2 Globulin (1.9 - 4.2 gm/dL) 2.9 Albumin/Globulin Ratio (1.1 - 2.2 %) 1.4 Hematology CBC w Diff NO MAN DIFF REQ WBC (4.8 - 10.8 /CUMM) 5.5 RBC (4.70 - 6.10 /CUMM) 4.68 L Hgb (14.0 - 18.0 G/DL) 13.4 L Hct (42 - 52 %) 39.6 L MCV (80.0 - 94.0 FL) 84.6 MCH (27.0 - 31.0 PG) 28.6 RDW (11.5 - 14.5 %) 14.9 H Plt Count (130 - 400 /CUMM) 209 MPV (7.4 - 10.4 FL) 6.6 L Gran % (42.2 - 75.2 %) 78.3 H Lymphocytes % (20.5 - 51.1 %) 13.1 L Monocytes % (1.7 - 9.3 %) 7.6 Eosinophils % (0 - 5 %) 0.7 Basophils % (0.0 - 2.0 %) 0.3 Absolute Granulocytes (1.4 - 6.5 /CUMM) 4.3 Absolute Lymphocytes (1.2 - 3.4 /CUMM) 0.7 L Absolute Monocytes (0.10 - 0.60 /CUMM) 0.4 Absolute Eosinophils (0.0 - 0.7 /CUMM) 0 Absolute Basophils (0.0 - 0.2 /CUMM) 0 PUBS MCHC (33.0 - 37.0 G/DL) 33.8 ESR Westergren (0 - 10 MM) 63 H Diagnostic Data Other Results Further x-ray: IMPRESSION: 1. Findings are suspicious for osteomyelitis of the tuft of the distal phalanx of the third digit with overlying associated soft tissue swelling. 2. No acute fracture or dislocation. 3. Osteopenia with mild degenerative changes as discussed above. Assessment/Plan Assessment/Plan Assessment: 1. Infection/possible osteomyelitis right third toe 2. Peripheral arterial disease with history of peripheral neuropathy 3. 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 Carotid atherosclerosis 5. 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 History of ventricular ectopy Recommendations: -From a cardiac standpoint, the patient has been very stable. He has maintained a reasonable aerobic capacity level. Within the last 6-8 months he has had a complete cardiac evaluation including an echocardiogram and pharmacologic nuclear stress test which were essentially unrevealing. Specifically, the nuclear stress test was normal. From a cardiac standpoint, the patient should tolerate the upcoming podiatric procedure without difficulty. -Please call us any new issues should arise. -The patient has a routine follow-up with me in several months. Consult Acknowledgment - Thank you for your consult request.
--- NOTE | 2016-07-16 12:19 | NUR ---
PATIENT TRANSFERRED TO OR. GLASSES ON BEDSIDE TABLE.
--- NOTE | 2016-07-16 12:48 | Cons- Infect Disease ---
General Information and HPI Consulting Request Date of Consult: 07/16/16 Requested By: EFREN WATESR MD Reason for Consult: Osteomyelitis right third toe Source of Information: patient History of Present Illness: This is an 86-year-old man with a peripheral neuropathy, peripheral vascular disease, status post left fem-tib bypass 4 months prior to admission, status post trauma to the right third toe 1 month prior to admission, treated with a ten-day course of antibiotics at that time, with intermittent discomfort in the toe since then, status post lower extremity angiogram 3 days prior to admission, admitted on July 14 with increasing pain in the right third toe and erythema spreading to the dorsum of the right foot with no associated fevers or chills. On admission he was afebrile. Laboratory data revealed a white blood cell count of 6000, ESR 63, BUN/creatinine 17 and 0.8, with normal liver enzymes. X-ray of the right foot revealed soft tissue swelling with a small area of apparent demineralization in the lateral aspect of the tuft of the third distal phalanx. He was given a dose of Unasyn and then followed off antibiotics. On July 15 an MRI of the right foot revealed indistinctness of the distal cortical margin and loss of signal intensity of the periphery of the tuft of the distal phalanx of the right third toe consistent with acute osteomyelitis. He has remained afebrile since admission and notes decreased erythema of the right foot. He is scheduled for partial amputation of the right third toe later today. Allergies/Medications Allergies: Coded Allergies: No Known Allergies (03/13/16) Home Med List: Aspirin (Aspirin*) 81 MG TAB.CHEW 1 TAB PO DAILY HEART HEALTH (Reported) Clopidogrel Bisulfate (Plavix) 75 MG TABLET 1 TAB PO DAILY anti clot Docusate Sodium (Stool Softener) 100 MG CAPSULE 1 CAP PO DAILY STOOL SOFTENER (Reported) Magnesium Oxide 400 MG TABLET 1 TAB PO DAILY HEART (Reported) Oxycodone HCl/Acetaminophen (Oxycodone-Acetaminophen 5-325) 5 MG-325 MG TABLET 1 TAB PO PRN PAIN (Reported) Past History Travel History Traveled to [place] past 21 day No Medical History Blood Transfusion Hx: No Neurological: peripheral neuropathy, RAYNAUD'S EENT: NONE Cardiovascular: PVD Respiratory: NONE Gastrointestinal: NONE Hepatic: NONE Renal: NONE Musculoskeletal: ARTHRITIS Psychiatric: NONE Endocrine: NONE Blood Disorders: NONE 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 Home Services at Home: Nursing Smoking Status: Former Smoker ETOH Use: denies use Illicit Drug Use: denies illicit drug use Functional Ability ADLs Independent: dressing, eating, toileting, bathing. Ambulation: independent IADLs Independent: shopping, housework, finances, food prep, telephone, transportation , medication admin. Review of Systems Review of Systems All Other Systems: Reviewed and Negative Exam & Diagnostic Data Last 24 Hrs of Vital Signs/I&O Vital Signs Date Time Temp Pulse Resp B/P Pulse O2 O2 Flow FiO2 Ox Delivery Rate 07/16 0635 97.7 84 20 136/72 98 Room Air 07/15 2350 97 Room Air 07/15 2156 98.2 90 20 135/70 85 07/15 1359 98.4 84 20 140/89 94 Intake & Output 07/16 1600 07/16 0800 07/16 0000 Intake Total 0 200 Output Total 200 Balance -200 200 Intake, Oral 0 200 Output, Urine 200 Physical Exam Other Physical Findings: He is awake and alert in no acute distress. He is afebrile. Skin reveals no rash. HEENT exam is negative. Neck is supple with no adenopathy. Lungs are clear. Heart regular rhythm with no murmur. Abdomen is soft, nontender with positive bowel sounds. Back no CVA tenderness. Extremities right third toe necrotic ulcer with edema of the toe, with erythema over the dorsum of the right foot, minimally tender to palpation; pulses 1+ and equal both feet.. Neuro neuropathy of the left foot. Last 24 Hours of Lab Results: Laboratory Tests 07/16 629 Hematology CBC w Diff NO MAN DIFF REQ WBC (4.8 - 10.8 /CUMM) 5.3 RBC (4.70 - 6.10 /CUMM) 4.32 L Hgb (14.0 - 18.0 G/DL) 12.4 L Hct (42 - 52 %) 36.3 L MCV (80.0 - 94.0 FL) 84.1 MCH (27.0 - 31.0 PG) 28.8 RDW (11.5 - 14.5 %) 14.7 H Plt Count (130 - 400 /CUMM) 184 MPV (7.4 - 10.4 FL) 6.8 L Gran % (42.2 - 75.2 %) 74.7 Lymphocytes % (20.5 - 51.1 %) 17.8 L Monocytes % (1.7 - 9.3 %) 6.1 Eosinophils % (0 - 5 %) 1.2 Basophils % (0.0 - 2.0 %) 0.2 Absolute Granulocytes (1.4 - 6.5 /CUMM) 4.0 Absolute Lymphocytes (1.2 - 3.4 /CUMM) 0.9 L Absolute Monocytes (0.10 - 0.60 /CUMM) 0.3 Absolute Eosinophils (0.0 - 0.7 /CUMM) 0.1 Absolute Basophils (0.0 - 0.2 /CUMM) 0 PUBS MCHC (33.0 - 37.0 G/DL) 34.2 Last 24 Hours of Justin Results: Blood cultures 2 July 14 negative Diagnostic Data Recent Imaging Findings: X-ray of the right foot July 14 revealed soft tissue swelling with a small area of apparent demineralization in the lateral aspect of the tuft of the third distal phalanx. MRI of the right foot July 15 revealed indistinctness of the distal cortical margin and loss of signal intensity of the periphery of the tuft of the distal phalanx of the right third toe consistent with acute osteomyelitis. Arterial Dopplers of both lower extremities July 15 reveal a patent left lower extremity bypass graft and bilateral peripheral arterial disease Assessment/Plan Assessment/Plan Impression: This is an 86-year-old man with a peripheral neuropathy and peripheral vascular disease, status post left leg revascularization 4 months prior to admission and a recent angiogram, admitted on July 14 with a one-month history of an ulcer on the distal aspect of the right third toe, with increasing pain and erythema of the dorsum of the right foot, found to be afebrile with a normal white blood cell count and with x-ray and MRI suggestive of osteomyelitis. He is scheduled for partial amputation of the right third toe and, if all the infected bone is removed, he should not require a prolonged course of antibiotics for residual osteomyelitis. He does have an element of cellulitis; therefore he may require at least a short course of antibiotics for a soft tissue infection, which can be started postoperatively. Suggestion: 1. Await surgery later today for partial amputation of the right third toe 2. Further evaluation/management of his RLE vascular disease per Vascular surgery 3. Begin Unasyn 1.5 g IV every 6 hours after surgery pending OR cultures Consult Acknowledgment - Thank you for your consult request.
--- NOTE | 2016-07-16 13:20 | Operative Report ---
Operative/Inv Procedure Report Surgery Date: 07/16/16 Name of Procedure: 1 open incision and drainage deep to the D fashion with exposure of the extensor and flexor tendon and tendon sheath multiple sites right foot 2 bone biopsy of a distal toe and presented third digit 3 intraoperative administration of ankle block anesthesia 4 excisional debridement Pre-Operative Diagnosis: 1 open infected wound right foot 2 osteomyelitis right foot 3 peripheral arterial disease Post-Operative Diagnosis: The same Estimated Blood Loss: less than 50ml Surgeon/[employer]: JEFF VANEGAS DPM Anesthesia: moderate sedation, block Operative/Procedure Note Note: After obtaining informed consent the patient was brought to the operating room and placed on the operating table in the supine position. The patient isn't securely fastened to the operating table utilizing safety belt. After administration of IV sedation, 10 mL of 0.5% Marcaine plain was obtained about the patient's right ankle. Foot and ankle then scrubbed prepped and draped in usual aseptic manner. Attention directed distal right foot, where a large full- thickness necrotic was identified. A 15 blade was utilized sharply revised skin margins. Dissection was then carried down deep to the fashion with exposure of the extensor and flexor tendon and tendon sheath multiple sites right foot. All necrotic nonviable infected tissue sharply evacuated from the wound bed. Dissection was then carried down to the periosteum overlying the middle phalanx. This incised reflected. A bone cutter was utilized to perform through and through osteotomy. The distal osseous segment was freed and passed from the operative field. Specimen was sent for both pathologic and microbiologic inspection. Nipple was then irrigated with 3 L normal normal sterile saline infusion 50,000 units of bacitracin. Following this the, the foot was redraped and the surgeon's top gloves were changed clean gloves. Any bleeding vessels identified were cauterized or ligated as encountered. The wound was then packed with wet-to-dry dressing and 3-0 nylon retention sutures were placed. The foot was then dressed with 4 x 4's Kerlix and Ethan wrap. The patient was noted to tolerate both procedure and anesthesia well and the patient was transported from the operating room to recovery with vital signs stable.
[2016-07-16 14:00] VITALS: BP 140/80
[2016-07-16 14:50] VITALS: BP 135/70
--- NOTE | 2016-07-16 15:12 | NUR ---
PATIENT RETURNED TO FLOOR 1400. VITAL SIGNS STABLE. WOUND DRESSING INTACT
[2016-07-16 23:22] VITALS: BP 124/60
[2016-07-17 06:55] VITALS: BP 134/66
--- NOTE | 2016-07-17 07:13 | PN- Housestaff ---
TONY DERAS,[facility] 07/17/16 0712: Subjective Follow-up For: Right third toe osteomyelitis Subjective: I saw and examined the patient this morning, he is lying in bed alert awake and oriented. In no distress. Patient is reporting pain on the right third toe. Reports he did not sleep well last night to support pain. Denies any headache, fever chills, coughing, shortness of breath, chest pain, abdominal pain, changes in the stool, any pain in the lower legs supportive affected toe. Review of Systems Constitutional: Denies: chills, fever, weakness. EENTM: Denies: visual changes, hearing changes. Cardiovascular: Denies: chest pain, palpitations. Respiratory: Denies: cough, sputum production. Gastrointestinal: Denies: abdominal pain, nausea, changes in stool, vomiting. Genitourinary: Reports: no symptoms. Musculoskeletal: Denies: back pain. Skin: Reports: lesions. Neurological/Psychological: Reports: no symptoms. Hematologic/Endocrine: Reports: no symptoms. Objective Last 24 Hrs of Vital Signs/I&O Vital Signs Date Time Temp Pulse Resp B/P Pulse O2 O2 Flow FiO2 Ox Delivery Rate 07/17 0655 98.1 86 20 134/66 96 Room Air 07/16 2322 98.5 74 20 124/60 97 Room Air 07/16 1450 98.2 92 20 135/70 96 07/16 1400 98.3 76 14 140/80 Room Air Intake & Output 07/17 1600 07/17 0800 07/17 0000 Intake Total 620 540 Output Total 250 200 250 Balance -250 420 290 Intake, IV 260 150 Intake, Oral 360 390 Output, Urine 250 200 250 Patient 79.832 kg Weight Physical Exam General Appearance: Alert, Oriented X3, Cooperative, No Acute Distress Skin: right third toe redness and swelling. HEENT: Atraumatic, EOMI Neck: No JVD Cardiovascular: Regular Rate, Normal S1, Normal S2, No Murmurs Lungs: Normal Air Movement Abdomen: Soft, No Tenderness Neurological: Normal Speech, Normal Tone Extremities: No Edema, Normal Pulses Vascular: Pulses Symmetrical Current Medications: Current Medications Sig/Ramon Start time Last Medication Dose Route Stop Time Status Admin Acetaminophen 650 MG Q6P PRN 07/14 1915 AC PO Ampicillin Sodium/ 1,500 MG Q6 07/16 1800 AC 07/17 Sulbactam Sodium IV 0607 Sodium Chloride 100 ML Aspirin 81 MG DAILY 07/15 1000 AC 07/17 PO 1009 Clopidogrel Bisulfate 75 MG DAILY 07/15 1000 AC 07/17 PO 1009 Magnesium Oxide 400 MG DAILY 07/15 1000 AC 07/17 PO 1009 Morphine Sulfate 2 MG Q4P PRN 07/14 191 AC 07/15 IV 0937 Oxycodone/ 2 TAB Q6P PRN 07/15 1215 AC 07/16 Acetaminophen PO 195 Last 24 Hrs of Lab/Justin Results Last 24 Hrs of Labs/Mics: Laboratory Tests 07/17/16 0710: CBC w Diff NO MAN DIFF REQ, RBC 4.23 L, MCV 84.0, MCH 28.7, RDW 14.3, MPV 6.5 L, Gran % 79.9 H, Lymphocytes % 13.1 L, Monocytes % 5.7, Eosinophils % 1.1, Basophils % 0.2, Absolute Granulocytes 4.8, Absolute Lymphocytes 0.8 L, Absolute Monocytes 0.3, Absolute Eosinophils 0.1, Absolute Basophils 0, PUBS MCHC 34.2 Microbiology 07/16 1307 EXTREMITIE: Culture & Sensitivity - CAN Cancelled: OR SPECIMEN 07/16 1307 EXTREMITIE: Gram Stain - CAN Cancelled: OR SPECIMEN 07/16 1300 EXTREMITIE: Gross Specimen Examination - RES STAPH AUREUS 07/16 1300 EXTREMITIE: Gram Stain - RES Assessment/Plan Assessment: 86-year-old gentleman with a PMH of peripheral neuropathy, osteoarthritis, PVD/ PAD S/P left popliteal to posterior tibial artery bypass in the setting of left great toe gangrene (02/16/2016), recent angiogram on 07/11/2016 for right middle toe infection who presents with complaints of worsening pain and redness in his toe. VS admission: BP 156/76, HR 92, RR 18, SPO2 97% on RA, T 97.5 Pertinent labs: WBC 5.5, H&H 13.4/39.6, platelets 209, BUN/CR 17/0.8, glucose 187 CRP: > 15.0 ESR: 63 Lipid panel shows LDL of 67 and HDL of 42. PT:12.2, INR 1.16. Problem list: 1. Right middle toe cellulitis/osteomyelitis 2. PVD/PAD with recent angiogram 3. Pain management 4. physical therapy Plan: * Patient went to the OR yesterday, we started him on IV antibiotics (Unasyn 1.5 g every 6) per ID suggestions. Preliminary report of the culture shows staph aureus. will follow. * Vascular surgery is on board, no interventions needed at this point * Pain management with Tylenol, Percocet, morphine for escalating pain * Continue with aspirin 81 mg and Plavix 75 mg daily for history of PVD * PT cleared the patient to go home with PT * DVT prophylaxis: No ALPs in the setting of PVD. * CODE STATUS: DNR/DNI Problem List: 1. S/P femoral-tibial bypass 2. Pain management 3. PAD (peripheral artery disease) 4. Acute osteomyelitis of toe of right foot Pain Ratin Pain Location: Right middle toe Pain Goal: Pain 4 or less Pain Plan: Tylenol, Percocet, morphine Tomorrow's Labs & Rationales: CBC (osteomyelitis on antibiotics) EVELYN MOSS MD 07/17/16 1035: Attending MD Review Statement Attending Statement Attending MD Statement: examined this patient, discuss w/resident/PA/BACTERIOLOGIST MEDICAL, reviewed EMR data (avail), amended to note Attending Assessment/Plan: Mr. Antoine was interviewed, examined, and his EMR reviewed. He states he was comfortable overnight and required only oral analgesia. He remains afebrile with stable vital signs. His physical exam is benign. He has no leukocytosis. Pulmonary report from his surgical culture is a light growth of staph aureus. Surgical management will be continued by Dr. Elizabeth. His intraoperative culture should be followed and antibiotics adjusted per those results.
[2016-07-17 08:03] LABS: ABSOLUTE BASOPHIL COUNT 0 /CUMM (0.0-0.2); ABSOLUTE EOSINOPHIL COUNT 0.1 /CUMM (0.0-0.7); ABSOLUTE GRANULOCYTE CT 4.8 /CUMM (1.4-6.5); ABSOLUTE LYMPH COUNT 0.8 /CUMM (1.2-3.4); ABSOLUTE MONOCYTE COUNT 0.3 /CUMM (0.10-0.60); BASOPHIL % 0.2 % (0.0-2.0); EOSINOPHIL % 1.1 % (0-5); GRANULOCYTE % 79.9 % (42.2-75.2); HEMATOCRIT 35.5 % (42-52); MEAN CORPUSCULAR HGB 28.7 PG (27.0-31.0); MEAN CORPUSCULAR HGB CONC 34.2 G/DL (33.0-37.0); MEAN PLATELET VOLUME 6.5 FL (7.4-10.4); PLATELET COUNT 198 /CUMM (130-400); RBC DISTRIBUTION WIDTH 14.3 % (11.5-14.5); RED BLOOD CELL CT 4.23 /CUMM (4.70-6.10)
[2016-07-17 14:15] VITALS: BP 120/70
--- NOTE | 2016-07-17 15:19 | PN- Infect Dx ---
Subjective Subjective: Afebrile without complaints, with pain well controlled Objective Last 24 Hrs of Vital Signs/I&O Vital Signs Date Time Temp Pulse Resp B/P Pulse O2 O2 Flow FiO2 Ox Delivery Rate 07/17 1415 97.7 88 20 120/70 96 07/17 0655 98.1 86 20 134/66 96 Room Air 07/16 2322 98.5 74 20 124/60 97 Room Air Intake & Output 07/17 1600 07/17 0800 07/17 0000 Intake Total 250 620 540 Output Total 250 200 250 Balance 0 420 290 Intake, IV 260 150 Intake, Oral 250 360 390 Output, Urine 250 200 250 Patient 176 lb Weight Physical Exam Other Physical Findings: He appears comfortable in no acute distress Lungs are clear Heart regular rhythm with no murmur Extremities right foot dressing intact Results Last 24 Hours of Lab Results: Laboratory Tests 07/17 0710 Hematology CBC w Diff NO MAN DIFF REQ WBC (4.8 - 10.8 /CUMM) 6.0 RBC (4.70 - 6.10 /CUMM) 4.23 L Hgb (14.0 - 18.0 G/DL) 12.1 L Hct (42 - 52 %) 35.5 L MCV (80.0 - 94.0 FL) 84.0 MCH (27.0 - 31.0 PG) 28.7 RDW (11.5 - 14.5 %) 14.3 Plt Count (130 - 400 /CUMM) 198 MPV (7.4 - 10.4 FL) 6.5 L Gran % (42.2 - 75.2 %) 79.9 H Lymphocytes % (20.5 - 51.1 %) 13.1 L Monocytes % (1.7 - 9.3 %) 5.7 Eosinophils % (0 - 5 %) 1.1 Basophils % (0.0 - 2.0 %) 0.2 Absolute Granulocytes (1.4 - 6.5 /CUMM) 4.8 Absolute Lymphocytes (1.2 - 3.4 /CUMM) 0.8 L Absolute Monocytes (0.10 - 0.60 /CUMM) 0.3 Absolute Eosinophils (0.0 - 0.7 /CUMM) 0.1 Absolute Basophils (0.0 - 0.2 /CUMM) 0 PUBS MCHC (33.0 - 37.0 G/DL) 34.2 Last 24 Hours of Justin Results: OR culture July 16 labeled right third toe positive for Staph aureus Blood cultures 2 July 14 negative Assessment/Plan Impression: Stable status post partial amputation of the right third toe for osteomyelitis, with Staph aureus isolated from the OR culture. He remains afebrile with white blood cell count remaining normal now on Unasyn for residual soft tissue infection. As it appears that all of the infected bone has been removed he should not require a prolonged course of IV antibiotics. He is scheduled for a return to the OR later this week for wound closure. Suggestion: 1. Await return to the OR later this week for wound closure 2. Further evaluation/management of his RLE vascular disease per Vascular surgery 3. Follow-up OR culture 4. Continue Unasyn pending above
[2016-07-17 23:17] VITALS: BP 130/60
[2016-07-18 06:46] VITALS: BP 118/56
--- NOTE | 2016-07-18 07:00 | PN- Housestaff ---
TONY DERAS,[facility] 07/18/16 0700: Subjective Follow-up For: Right third toe ulcer Subjective: Patient is alert and oriented, comfortably lying in bed, had a good night sleep. Does not report any pain currently. Patient is going to the OR today for wound closure, he has not eaten past midnight. He is happy that his [id number] is coming to see him tonight and his son will be visiting tomorrow. They were away for a week. Review of Systems Constitutional: Denies: chills, fever, weakness. EENTM: Reports: no symptoms. Cardiovascular: Denies: chest pain, palpitations. Respiratory: Denies: cough, short of breath. Gastrointestinal: Denies: abdominal pain, changes in stool. Genitourinary: Reports: no symptoms. Musculoskeletal: Reports: joint pain (right third toe), joint swelling. Skin: Reports: lesions. Neurological/Psychological: Reports: no symptoms. Hematologic/Endocrine: Reports: no symptoms. Objective Last 24 Hrs of Vital Signs/I&O Vital Signs Date Time Temp Pulse Resp B/P Pulse O2 O2 Flow FiO2 Ox Delivery Rate 07/18 0646 98.0 78 20 118/56 98 07/17 2317 97.8 73 20 130/60 97 Room Air 07/17 1415 97.7 88 20 120/70 96 Intake & Output 07/18 1600 07/18 0800 07/18 0000 Intake Total 620 850 Output Total 250 Balance 620 600 Intake, IV 260 250 Intake, Oral 360 600 Output, Urine 250 Physical Exam General Appearance: Alert, Oriented X3, Cooperative, No Acute Distress Skin: right foot erythema and tenderness more prominent on the third toe, S/P department with dressing around the toe. HEENT: Atraumatic, EOMI Neck: Supple, No JVD Cardiovascular: Regular Rate, Normal S1, Normal S2, No Murmurs Lungs: Clear to Auscultation, Normal Air Movement Abdomen: Soft, No Tenderness Neurological: Normal Speech, Normal Tone Extremities: No Clubbing, No Cyanosis Vascular: Pulses Symmetrical Current Medications: Current Medications Sig/Ramon Start time Last Medication Dose Route Stop Time Status Admin Acetaminophen 650 MG .STK-MED ONE 07/17 1314 DC PO 07/17 1315 Acetaminophen 650 MG Q6P PRN 07/14 1915 AC 07/17 PO 1319 Ampicillin Sodium/ 1,500 MG Q6 07/16 1800 AC 07/18 Sulbactam Sodium IV 0631 Sodium Chloride 100 ML Aspirin 81 MG DAILY 07/15 1000 AC 07/17 PO 1009 Clopidogrel Bisulfate 75 MG DAILY 07/15 1000 AC 07/17 PO 1009 Magnesium Oxide 400 MG DAILY 07/15 1000 AC 07/17 PO 1009 Morphine Sulfate 2 MG Q4P PRN 07/14 1915 AC 07/15 IV 0937 Oxycodone/ 2 TAB Q6P PRN 07/15 1215 AC 07/16 Acetaminophen PO 1951 Patient Medication 1 ED .STK-MED ONE 07/17 1359 [place] Teaching ED 07/17 1400 Last 24 Hrs of Lab/Justin Results Last 24 Hrs of Labs/Mics: Laboratory Tests 07/18/16 0615: Sodium Pending, Potassium Pending, Chloride Pending, Carbon Dioxide Pending, Anion Gap Pending, BUN Pending, Creatinine Pending, BUN/Creatinine Ratio Pending , CBC w Diff Pending, WBC Pending, RBC Pending, Hgb Pending, Hct Pending, MCV Pending, MCH Pending, RDW Pending, Plt Count Pending, MPV Pending, PUBS MCHC Pending Assessment/Plan Assessment: 86-year-old gentleman with a PMH of peripheral neuropathy, osteoarthritis, PVD/ PAD S/P left popliteal to posterior tibial artery bypass in the setting of left great toe gangrene (02/16/2016), recent angiogram on 07/11/2016 for right middle toe infection who presents with complaints of worsening pain and redness in his toe. VS admission: BP 156/76, HR 92, RR 18, SPO2 97% on RA, T 97.5 Pertinent labs: WBC 5.5, H&H 13.4/39.6, platelets 209, BUN/CR 17/0.8, glucose 187 CRP: > 15.0 ESR: 63 Lipid panel shows LDL of 67 and HDL of 42. PT:12.2, INR 1.16. Problem list: 1. Right middle toe cellulitis/osteomyelitis 2. PVD/PAD with recent angiogram 3. Pain management 4. physical therapy Plan: * S/P DEBRIDEMENT ON 07/17/16, we started him on IV antibiotics (Unasyn 1.5 g every 6h) per ID suggestions. Preliminary report of the culture shows staph aureus. will follow. * Dr. Elizabeth will take patient to the OR for wound closure POSSIBLY TOMORROW. Patient is MADE nothing by mouth AFTER MIDNIGHT. * Vascular surgery is on board, no interventions needed at this point * Pain management with Tylenol, Percocet, morphine for escalating pain * Continue with aspirin 81 mg and Plavix 75 mg daily for history of PVD * PT cleared the patient to go home with PT * DVT prophylaxis: No ALPs in the setting of PVD. * CODE STATUS: DNR/DNI Problem List: 1. Acute osteomyelitis of toe of right foot 2. PAD (peripheral artery disease) 3. Pain management 4. S/P femoral-tibial bypass Pain Ratin Pain Location: Currently no pain Pain Goal: Pain 4 or less Pain Plan: Mild, moderate and severe pathways Tomorrow's Labs & Rationales: CBC (osteomyelitis and cellulitis) EVELYN MOSS MD 07/18/16 1730: Attending MD Review Statement Attending Statement Attending MD Statement: examined this patient, agreed w/resident/PA/COMMUNITY MENTAL HE[employer] WORKER, reviewed EMR data (avail), amended to note Attending Assessment/Plan: Mr. Antoine was interviewed, examined, and his EMR was reviewed. He notes some pain at the site of his surgery but otherwise has no complaints. He remains afebrile with stable vitals. His physical exam is benign. Laboratory values are stable with no leukocytosis evident on his CBC. Operative cultures growing staph aureus intermediately sensitive to Unasyn but sensitive to Augmentin. He is to return to the OR in the a.m. for further debridement and closure. I agree with that we will be able to convert him to by mouth antibiotics to complete a one-week course once he is discharged. We will continue his maintenance medications.
--- NOTE | 2016-07-18 07:17 | Discharge Summary ---
See Addendum Visit Information Visit Dates Admission Date: 07/14/16 Discharge Date: 07/19/2016 Hospital Course Course Attending Physician: EVELYN MOSS MD Primary Care Physician: EVELYN MOSS MD Consulting Request: Consulting Specialty: Podiatry Hospital Course: Mr. Antoine is a 86-year-old gentleman with a PMH of peripheral neuropathy, osteoarthritis, PVD/PAD S/P left popliteal to posterior tibial artery bypass in the setting of left great toe gangrene (02/16/2016), recent angiogram on 07/11/2016 for right middle toe infection who presented with complaints of worsening pain and redness in his toe. Status post angiography he was doing well. The first few days, able to ambulate without limitations. Patient to the ER he noted sudden onset of stabbing/ burning pain in the middle of his right middle toe limiting his ability to walk, not relieved with Percocet. VS admission: BP 156/76, HR 92, RR 18, SPO2 97% on RA, T 97.5 Physical examination on admission: Alert and in no acute distress. Skin: diffuse erythema over the right middle great toe spread proximally towards the dorsum of the right foot approximately 12 cm. Skin on the right foot is slightly warmer to touch. Posterior tibial pulses are present bilaterally. Mucous members pink and moist. RRR, normal S1/S2. Lungs CTA BL. Normal bowel sounds, nontender to palpation. Pertinent labs: WBC 5.5, H&H 13.4/39.6, platelets 209, BUN/CR 17/0.8, glucose 187 CRP: > 15.0 ESR: 63 Cardiac risk stratification was provided by Dr. Singer. His records indicate that during the preceding 6-8 months the patient had a complete cardiac evaluation including echocardiogram and pharmacologic nuclear stress test which were unrevealing. The patient was assessed to be able to tolerate the upcoming procedure without difficult. The patient was admitted to the general medicine floor for management of the following problems: 1. Right middle toe cellulitis/questionable osteomyelitis 2. PVD/PAD with recent angiogram 3. Pain management Hospital course: 1. Right middle toe cellulitis/questionable osteomyelitis * We obtained an MRI of the right foot the next day which showed: Osteomyelitis of the distal tuft of the 3rd toe distal phalanx. Mild 1st MTP joint degenerative arthritis. * On 07/16/2016 the patient was taken to the operating room by Dr. Vanegas and underwent the following procedure: * Open incision and drainage deep to the D fashion with exposure of the extensor and flexor tendon and tendon sheath multiple sites right foot. Bone biopsy of a distal toe and presented third digit. Intraoperative administration of ankle block anesthesia. Excisional debridement. Postprocedure diagnosis was open infected wound of the right foot, osteomyelitis in the setting of PAD * On 07/19/2016 the patient returned to the operating room for delayed primary closure of open surgical wound with local random advancement flap, debridement of bone and the right foot and excisional debridement. * Post discharge recommendations: Heel touch, weightbearing as tolerated and rolling walker for ambulation * Follow-up ESR on 07/22/2016 * From infectious disease standpoint the patient received 4 days of Unasyn 1.5 g IV Q6 * Operating room cultures: 1. STAPH AUREUS RX AB ------ -- CEFAZOLIN S AMOXICILLIN/CLAVULINIC ACID S AMPICILLIN/SULBACTAM S TETRACYCLINE S TRIMETHOPRIM/SULFAMETHOXAZOLE S AZITHROMYCIN R CLINDAMYCIN S ERYTHROMYCIN R OXACILLIN S VANCOMYCIN S * We transition the patient to Augmentin 875 mg PO Q12 to complete 7 days antibiotics post debridement 2. PVD/PAD with recent angiogram * From a vascular standpoint we also obtained an arterial Doppler showed: Patent left lower extremity bypass graft extending from the distal femoral artery to the posterior tibial artery distribution. Bilateral peripheral arterial disease. Greater sensitivity and specificity can be obtained with pre-and post exercise PVRs with BHARAT calculations. Also consider dedicated CTA for further anatomical detail * Patient was seen by vascular logistics specialist with recommendations for continued local wound care * Continued dual platelet therapy with aspirin 81 mg, Plavix 75 mg daily 3. Pain management * Adequate analgesia was obtained with Percocets 2 tabs PO Q6PRN. Patient reports having approximately 25 pills at home 4. Diet * Heart healthy diet 5. DVT prophylaxis * Dual platelet therapy 6. CODE STATUS * DNR/DNI Allergies: Coded Allergies: No Known Allergies (03/13/16) Disposition Summary Disposition Principal Diagnosis: Osteomyelitis of third right toe Additional Diagnosis: PVD/PAD with recent angiogram Pain management Physical therapy Discharge Disposition: home or self care Discharge Instructions General Discharge Information Code Status: Do Not Resucitate/Intubat Patient's Diet: Heart healthy Patient's Activity: As tolerated Follow-Up Instructions/Appts: Please follow-up with Dr. Vanegas on Friday07/22/2016. Please take the antibiotics as directed. Please follow-up with the PCP within 1-2 weeks after discharge. Weightbearing status: Heal touch, as tolerated, rolling walker Medications at Discharge Discharge Medications: Continue taking these medications: Aspirin (Aspirin*) 81 MG TAB.CHEW 1 Tablet ORAL DAILY Comments: Last Taken:03/22/16 Time:9:06A.M Magnesium Oxide (Magnesium Oxide) 400 MG TABLET 1 Tablet ORAL DAILY Comments: Last Taken:03/22/16 Time:9:06A.M Clopidogrel Bisulfate (Plavix) 75 MG TABLET 1 Tablet ORAL DAILY Qty = 30 Comments: Last Taken:03/22/16 Time:9:06A.M Docusate Sodium (Stool Softener) 100 MG CAPSULE 1 Capsule ORAL DAILY Comments: PER PT Oxycodone HCl/Acetaminophen (Oxycodone-Acetaminophen 5-325) 5 MG-325 MG TABLET 1 Tablet ORAL as needed for PAIN Qty = 30 Comments: PER PT Start taking the following new medications: Amoxicillin/Potassium Clav (Augmentin 875-125 Tablet) 875 MG-125 MG TABLET 1 Tablet ORAL TWICE DAILY Qty = 12 No Refills Copies To: REMA DERAS,ZELALEM; JEFF VANEGAS DPM; Marylou SINGER MD; SAPNA DERAS,JAMILAH Mccullough; MARKUS VENTURA MD
[2016-07-18 08:28] LABS: ABSOLUTE BASOPHIL COUNT 0 /CUMM (0.0-0.2); ABSOLUTE EOSINOPHIL COUNT 0.1 /CUMM (0.0-0.7); ABSOLUTE GRANULOCYTE CT 3.4 /CUMM (1.4-6.5); ABSOLUTE LYMPH COUNT 0.9 /CUMM (1.2-3.4); ABSOLUTE MONOCYTE COUNT 0.3 /CUMM (0.10-0.60); BASOPHIL % 0.4 % (0.0-2.0); EOSINOPHIL % 1.4 % (0-5); GRANULOCYTE % 72.5 % (42.2-75.2); HEMATOCRIT 34.5 % (42-52); MEAN CORPUSCULAR HGB 28.9 PG (27.0-31.0); MEAN CORPUSCULAR HGB CONC 34.2 G/DL (33.0-37.0); MEAN CORPUSCULAR VOLUME 84.5 FL (80.0-94.0); MEAN PLATELET VOLUME 6.7 FL (7.4-10.4); PLATELET COUNT 214 /CUMM (130-400); RBC DISTRIBUTION WIDTH 14.9 % (11.5-14.5); RED BLOOD CELL CT 4.09 /CUMM (4.70-6.10); WHITE BLOOD CELL COUNT 4.7 /CUMM (4.8-10.8)
[2016-07-18 14:12] VITALS: BP 150/80
--- NOTE | 2016-07-18 15:33 | NUR ---
PHYSICAL THERAPY: Pt held from PT this am due to leaving floor for OR for wound closure. Will follow up as approp.
--- NOTE | 2016-07-18 15:35 | PN- Infect Dx ---
Subjective Subjective: Afebrile without complaints Objective Last 24 Hrs of Vital Signs/I&O Vital Signs Date Time Temp Pulse Resp B/P Pulse O2 O2 Flow FiO2 Ox Delivery Rate 07/18 1412 97.9 97 20 150/80 99 Room Air 07/18 0646 98.0 78 20 118/56 98 07/17 2317 97.8 73 20 130/60 97 Room Air Intake & Output 07/18 1600 07/18 0800 07/18 0000 Intake Total 620 850 Output Total 400 250 Balance -400 620 600 Intake, IV 260 250 Intake, Oral 360 600 Output, Urine 400 250 Physical Exam Other Physical Findings: He appears comfortable in no acute distress Extremities right foot dressing intact Results Last 24 Hours of Lab Results: Laboratory Tests 07/18 614 Chemistry Sodium (137 - 145 mmol/L) 140 Potassium (3.5 - 5.1 mmol/L) 4.4 Chloride (98 - 107 mmol/L) 104 Carbon Dioxide (22 - 30 mmol/L) 26 Anion Gap (5 - 16) 11 BUN (9 - 20 mg/dL) 14 Creatinine (0.7 - 1.2 mg/dL) 0.8 Estimated GFR (>60 ml/min) > 60 BUN/Creatinine Ratio (7 - 25 %) 17.5 Hematology CBC w Diff NO MAN DIFF REQ WBC (4.8 - 10.8 /CUMM) 4.7 L RBC (4.70 - 6.10 /CUMM) 4.09 L Hgb (14.0 - 18.0 G/DL) 11.8 L Hct (42 - 52 %) 34.5 L MCV (80.0 - 94.0 FL) 84.5 MCH (27.0 - 31.0 PG) 28.9 RDW (11.5 - 14.5 %) 14.9 H Plt Count (130 - 400 /CUMM) 214 MPV (7.4 - 10.4 FL) 6.7 L Gran % (42.2 - 75.2 %) 72.5 Lymphocytes % (20.5 - 51.1 %) 18.6 L Monocytes % (1.7 - 9.3 %) 7.1 Eosinophils % (0 - 5 %) 1.4 Basophils % (0.0 - 2.0 %) 0.4 Absolute Granulocytes (1.4 - 6.5 /CUMM) 3.4 Absolute Lymphocytes (1.2 - 3.4 /CUMM) 0.9 L Absolute Monocytes (0.10 - 0.60 /CUMM) 0.3 Absolute Eosinophils (0.0 - 0.7 /CUMM) 0.1 Absolute Basophils (0.0 - 0.2 /CUMM) 0 PUBS MCHC (33.0 - 37.0 G/DL) 34.2 Last 24 Hours of Justin Results: OR culture right third toe bone positive for Staph aureus sensitive to Oxacillin Assessment/Plan Impression: Stable status post partial amputation of the right third toe for osteomyelitis 2 days ago, with plans for return to the OR later today for wound closure. He remains afebrile with white blood cell count normal on Unasyn for residual soft tissue infection secondary to Staph aureus, isolated from the OR culture. As it appears that all of the infected bone has been removed he should not require a prolonged course of IV antibiotics. Suggestion: 1. Await return to the OR later today 2. Further evaluation/management of his RLE vascular disease per Vascular surgery 3. Continue Unasyn, with change to Augmentin 875 mg po every 12 hours upon discharge to complete a one-week course of antibiotics post debridement
[2016-07-18 22:33] VITALS: BP 124/72
--- NOTE | 2016-07-19 07:31 | PN- Housestaff ---
Subjective Follow-up For: right third toe osteomyelitis and tight foot cellulitis Subjective: I saw and examined the patient at bedside today, he is alert and oriented in no distress, currently reports no pain, has been walking on the floor with right side weight bearing on the heel. Later in the morning reported sharp stabbing pain in the calf on the left side after walking 1 round on the floor. denies pain on the right side, reports pain subsided as he came back to bed. Review of Systems Constitutional: Denies: chills, fever, weakness. EENTM: Reports: no symptoms. Cardiovascular: Reports: no symptoms. Respiratory: Reports: no symptoms. Gastrointestinal: Reports: no symptoms. Genitourinary: Reports: no symptoms. Musculoskeletal: Reports: joint pain, muscle pain (left calf pain). Skin: Reports: no symptoms. Neurological/Psychological: Reports: no symptoms. Hematologic/Endocrine: Reports: no symptoms. Objective Last 24 Hrs of Vital Signs/I&O Vital Signs Date Time Temp Pulse Resp B/P Pulse O2 O2 Flow FiO2 Ox Delivery Rate 07/19 0741 98.7 81 20 112/60 94 Room Air 07/18 2233 97.5 68 20 124/72 96 07/18 1412 97.9 97 20 150/80 99 Room Air Intake & Output 07/19 1600 07/19 0800 07/19 0000 Intake Total 300 510 Output Total 750 Balance -450 510 Intake, IV 300 150 Intake, Oral 0 360 Output, Urine 750 Physical Exam General Appearance: Alert, Oriented X3, Cooperative, No Acute Distress Skin: right third toe osteomyelitis s/p debridement, scar of the previous arterial bypass graft on the left lower extremity medially 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 Neck: Supple, No JVD Cardiovascular: Regular Rate, Normal S1, Normal S2, No Murmurs Lungs: Clear to Auscultation, Normal Air Movement Abdomen: Soft, No Tenderness Neurological: Normal Speech, Normal Tone Extremities: there 1+ pitting edema on the left leg, slightly swollen upto the knee, appears erythematous on the medial side, there mild tenderness on the posterior calf. pulses of the popltieal and dorsalis pedis palpated (+2), bothe lower extremities are equally warm to touch. there is adequate perfusion on both sides. Vascular: Pulses Symmetrical Current Medications: Current Medications Sig/Ramon Start time Last Medication Dose Route Stop Time Status Admin Acetaminophen 650 MG Q6P PRN 07/14 191 AC 07/17 PO 1319 Ampicillin Sodium/ 1,500 MG Q6 07/16 1800 AC 07/19 Sulbactam Sodium IV 1221 Sodium Chloride 100 ML Aspirin 81 MG DAILY 07/15 1000 AC 07/19 PO 1050 Clopidogrel Bisulfate 75 MG DAILY 07/15 1000 AC 07/19 PO 1050 Magnesium Oxide 400 MG DAILY 07/15 1000 AC 07/19 PO 1050 Morphine Sulfate 2 MG Q4P PRN 07/14 191 AC 07/15 IV 0937 Oxycodone/ 2 TAB Q6P PRN 07/15 1215 AC 07/18 Acetaminophen PO 1801 Sodium Chloride 1,000 ML Q13H 07/19 1100 AC 07/19 IV 1050 Last 24 Hrs of Lab/Justin Results Last 24 Hrs of Labs/Mics: Laboratory Tests 07/19/16614: CBC w Diff NO MAN DIFF REQ, RBC 4.12 L, MCV 83.9, MCH 28.8, RDW 14.2, MPV 6.8 L, Gran % 70.4, Lymphocytes % 20.2 L, Monocytes % 7.7, Eosinophils % 1.4, Basophils % 0.3, Absolute Granulocytes 3.4, Absolute Lymphocytes 1.0 L, Absolute Monocytes 0.4, Absolute Eosinophils 0.1, Absolute Basophils 0, PUBS MCHC 34.3 Microbiology 07/18 2315 STOOL: Clostridium difficile Toxin A & B - RECD Assessment/Plan Assessment: 86-year-old gentleman with a PMH of peripheral neuropathy, osteoarthritis, PVD/ PAD S/P left popliteal to posterior tibial artery bypass in the setting of left great toe gangrene (02/16/2016), recent angiogram on 07/11/2016 for right middle toe infection who presents with complaints of worsening pain and redness in his toe. VS admission: BP 156/76, HR 92, RR 18, SPO2 97% on RA, T 97.5 Pertinent labs: WBC 5.5, H&H 13.4/39.6, platelets 209, BUN/CR 17/0.8, glucose 187 CRP: > 15.0 ESR: 63 Lipid panel shows LDL of 67 and HDL of 42. PT:12.2, INR 1.16. Problem list: 1. Right middle toe cellulitis/osteomyelitis 2. PVD/PAD with recent angiogram 3. Pain management 4. physical therapy Plan: * If spikes fever send blood culturex2 * S/P DEBRIDEMENT ON 07/16/16, we started him on IV antibiotics on 07/16/16 (Unasyn 1.5 g every 6h) per ID suggestions. Preliminary report of the culture shows staph aureus, will switch to oral ABx, Augmentin on discharge to complete 7 days (will need 2 days supply for Friday and Friday if he goes home tomorrow). * Dr. Elizabeth will take patient to the OR for wound closure today at 2 pm. * Vascular surgery is on board, eliezer follow recommendations. * Pain management with Tylenol, Percocet, morphine for escalating pain * Continue with aspirin 81 mg and Plavix 75 mg daily for history of PVD * PT cleared the patient to go home with PT * DVT prophylaxis: No ALPs in the setting of PVD. * CODE STATUS: DNR/DNI Problem List: 1. PAD (peripheral artery disease) 2. Acute osteomyelitis of toe of right foot Pain Ratin Pain Location: no pain currently Pain Goal: Pain 4 or less Pain Plan: mild mod severe pain pathways Tomorrow's Labs & Rationales: none Consulting Request: Consulting Specialty: Podiatry
[2016-07-19 07:41] VITALS: BP 112/60
[2016-07-19 08:14] LABS: ABSOLUTE BASOPHIL COUNT 0 /CUMM (0.0-0.2); ABSOLUTE EOSINOPHIL COUNT 0.1 /CUMM (0.0-0.7); ABSOLUTE GRANULOCYTE CT 3.4 /CUMM (1.4-6.5); ABSOLUTE MONOCYTE COUNT 0.4 /CUMM (0.10-0.60); BASOPHIL % 0.3 % (0.0-2.0); EOSINOPHIL % 1.4 % (0-5); GRANULOCYTE % 70.4 % (42.2-75.2); HEMATOCRIT 34.5 % (42-52); MEAN CORPUSCULAR HGB 28.8 PG (27.0-31.0); MEAN CORPUSCULAR HGB CONC 34.3 G/DL (33.0-37.0); MEAN CORPUSCULAR VOLUME 83.9 FL (80.0-94.0); MEAN PLATELET VOLUME 6.8 FL (7.4-10.4); PLATELET COUNT 216 /CUMM (130-400); RBC DISTRIBUTION WIDTH 14.2 % (11.5-14.5); RED BLOOD CELL CT 4.12 /CUMM (4.70-6.10); WHITE BLOOD CELL COUNT 4.8 /CUMM (4.8-10.8)
--- NOTE | 2016-07-19 11:44 | PN- Att Addend ---
Attending Addendum Attending Brief Note Mr. Antoine was interviewed and examined today. His EHR was reviewed. He is complaining of left calf pain but otherwise is without complaints. He remains afebrile with stable vital signs his examination is benign with the exception of mild tenderness with palpation of the lateral surface of the fibula. I agree with obtaining a venous Doppler study of his left lower extremity. He is to return to the OR later today for a further procedure on his right third toe. He will most likely be able to be discharged in the a.m.
--- NOTE | 2016-07-19 12:25 | ULTRASOUND REPORT ---
EXAMINATION: US TRIPLEX LOWER EXTREMITY, BILATERAL CLINICAL INFORMATION: Cramping and swelling in left calf. COMPARISON: 07/15/2016 arterial ultrasound TECHNIQUE: Color-flow triplex imaging with spectral analysis and compression Doppler were performed on the bilateral lower extremities. FINDINGS: Respiratory variation, normal compression and augmented flow are noted throughout the bilateral lower extremities. The visualized common femoral vein, superficial femoral vein, profunda femoral vein, popliteal vein and midcalf peroneal and posterior tibial venous segments show no evidence of deep venous thrombosis. There is no Marcus's cyst. IMPRESSION: Normal triplex scan without evidence of deep venous thrombosis involving the bilateral lower extremities.
--- NOTE | 2016-07-19 13:42 | PN- Infect Dx ---
Subjective Subjective: Afebrile. He notes mild discomfort in the right foot. Objective Last 24 Hrs of Vital Signs/I&O Vital Signs Date Time Temp Pulse Resp B/P Pulse O2 O2 Flow FiO2 Ox Delivery Rate 07/19 0741 98.7 81 20 112/60 94 Room Air 07/18 2233 97.5 68 20 124/72 96 07/18 1412 97.9 97 20 150/80 99 Room Air Intake & Output 07/19 1600 07/19 0800 07/19 0000 Intake Total 300 510 Output Total 750 Balance -450 510 Intake, IV 300 150 Intake, Oral 0 360 Output, Urine 750 Physical Exam Other Physical Findings: He appears comfortable in no acute distress Extremities right foot dressing intact Results Last 24 Hours of Lab Results: Laboratory Tests 07/19 0615 Hematology CBC w Diff NO MAN DIFF REQ WBC (4.8 - 10.8 /CUMM) 4.8 RBC (4.70 - 6.10 /CUMM) 4.12 L Hgb (14.0 - 18.0 G/DL) 11.9 L Hct (42 - 52 %) 34.5 L MCV (80.0 - 94.0 FL) 83.9 MCH (27.0 - 31.0 PG) 28.8 RDW (11.5 - 14.5 %) 14.2 Plt Count (130 - 400 /CUMM) 216 MPV (7.4 - 10.4 FL) 6.8 L Gran % (42.2 - 75.2 %) 70.4 Lymphocytes % (20.5 - 51.1 %) 20.2 L Monocytes % (1.7 - 9.3 %) 7.7 Eosinophils % (0 - 5 %) 1.4 Basophils % (0.0 - 2.0 %) 0.3 Absolute Granulocytes (1.4 - 6.5 /CUMM) 3.4 Absolute Lymphocytes (1.2 - 3.4 /CUMM) 1.0 L Absolute Monocytes (0.10 - 0.60 /CUMM) 0.4 Absolute Eosinophils (0.0 - 0.7 /CUMM) 0.1 Absolute Basophils (0.0 - 0.2 /CUMM) 0 PUBS MCHC (33.0 - 37.0 G/DL) 34.3 Last 24 Hours of Justin Results: OR culture July 16 right third toe bone positive for Staph aureus reported intermediate to Unasyn but sensitive to Cefazolin and Oxacillin Stool C. difficile July 18 negative Recent Imaging Studies: Dopplers of both lower extremities July 19 negative Assessment/Plan Impression: Stable status post partial amputation of the right third toe for osteomyelitis 3 days ago, with plans for return to the OR later today for wound closure. He remains afebrile with white blood cell count normal on Unasyn for residual soft tissue infection secondary to Staph aureus, isolated from the OR culture. The Staph aureus is reported intermediate to Unasyn, but, as it is sensitive to Cefazolin and Oxacillin, it should also be sensitive to Unasyn. As all of the infected bone has been removed he should only require antibiotics postop for residual soft tissue infection. Suggestion: 1. Await return to the OR later today 2. Further evaluation/management of his RLE vascular disease per Vascular surgery 3. Continue Unasyn, with change to Augmentin 875 mg po every 12 hours upon discharge to complete a one-week course of antibiotics post debridement
[2016-07-19 14:26] VITALS: BP 118/62
--- NOTE | 2016-07-19 14:48 | Operative Report ---
Operative/Inv Procedure Report Surgery Date: 07/19/16 Name of Procedure: 1 open incision and drainage deep to the D fashion with exposure of the extensor and flexor tendon and tendon sheath multiple sites right foot 2 delayed primary closure of open surgical wound with local random advancement flap 3 debridement of necrotic bone right foot 4 intraoperative administration of ankle block anesthesia 5 excisional debridement Pre-Operative Diagnosis: 1 open necrotic wound right foot 2 osteomyelitis right foot Post-Operative Diagnosis: The same Estimated Blood Loss: less than 50ml Surgeon/Scout Leaser: JEFF VANEGAS DPM Anesthesia: moderate sedation, block Operative/Procedure Note Note: After obtaining informed consent the patient was brought to the operating room and placed on the operating table in the supine position. The patient isn't securely fastened to the operating table utilizing safety belt. After administration of IV sedation, 10 mL of 0.5% Marcaine plain was infiltrated about the patient's right ankle. The right foot and ankle within scrubbed prepped and draped in usual aseptic manner. Attention directed to the right foot, where a large full-thickness necrotic was identified. A 15 blade was utilized to sharply revise the skin margins. The dissection was then carried down deep to the deep fascia with exposure of the extensor and flexor tendon and tendon sheath multiple sites right foot. All necrotic nonviable infected tissue sharply evacuated from the wound bed. Dissection was then carried down to the periosteum overlying the distal joint where the capsular ligamentous structures were reflected and the osseous segment was freed and passed from the operative field was sent for pathologic inspection. The open wound was then irrigated with 3 L of normal sterile saline fissure 50,000 units of bacitracin. Following this, the foot was redraped and the surgeon's top gloves were changed clean gloves. Any bleeding vessels identified were cauterized or ligated as encountered. A plantar flap was developed with release of the morning ligaments , undermining and mobilization of the adjacent tissue. The inferior flap was rotated superiorly towards central aspect of the wound. Was held in place centrally with 3-0 Vicryl. Dorsally, the adjacent tissues were again undermined , mobilized and advanced towards the open portion the wound. The deep side of the flap was held with 3-0 Vicryl. The skin edges were then reapproximated 3-0 nylon. Incision was then dressed with Xeroform 4 x 4's Kerlix and an Ethan wrap. The patient was noted to tolerate both procedure and anesthesia well and the patient was transported from the operating room to recovery with vital signs stable best assess intact to both the dorsal and plantar flaps.
[2016-07-19] MEDS ORDERED: AUGMENTIN 875-1 EACH PO ×2 (15:49→19:41)
[2016-07-19 16:00] VITALS: BP 162/70
[2016-07-19 17:55] VITALS: BP 124/60
--- NOTE | 2016-07-19 19:29 | Patient Discharge Instructions ---
See Addendum Discharge Instructions General Discharge Information You were seen/treated for: Osteomyelitis of the right third toe Skin infection of the foot You had these procedures: Partial amputation of the toe Watch for these problems: Fevers, chills, body aches Drainage from the wound Special Instructions: Please follow-up with Dr. Elizabeth on Friday07/22/2016. Please take all antibiotics as directed. His follow-up with the PCP within 1-2 weeks after discharge. Diet Recommended Diet: Heart Healthy Activity Additional ACTIVITY Info: Heel touch, weightbearing as tolerated, rolling walker Acute Coronary Syndrome Inclusion Criteria At DC or during hospital stay patient has or had the following: ACS DIAGNOSIS No Discharge Core Measures Meds if any: Prescribed or Continued at Discharge Meds if any: NOT Prescribed or Continued at Discharge Congestive Heart Failure Inclusion Criteria At DC or during hospital stay patient has or had the following: CHF DIAGNOSIS No Discharge Core Measures Meds if any: Prescribed or Continued at Discharge Meds if any: NOT Prescribed or Continued at Discharge Cerebrovascular accident Inclusion Criteria At DC or during hospital stay patient has or had the following: CVA/TIA Diagnosis No Discharge Core Measures Meds if any: Prescribed or Continued at Discharge Meds if any: NOT Prescribed or Continued at Discharge Venous thromboembolism Inclusion Criteria VTE Diagnosis No VTE Type NONE VTE Confirmed by (Test) NONE Discharge Core Measures - Per Current guidelines, there needs to be overlap - treatment for the first 5 days of Warfarin therapy. - If discharged on Warfarin prior to 5 days of - overlap therapy, the patient will need to be - assessed for post discharge needs including - *Post discharge parental anticoagulation - *Warfarin and/or parental anticoagulation education - *Follow up date to check INR post discharge At least 5 days overlap therapy as Inpatient No Meds if any: Prescribed or Continued at Discharge Note: Overlap Therapy is Warfarin and Anticoagulant Meds if any: NOT Prescribed or Continued at Discharge
[2016-07-19 19:57] VITALS: BP 126/60
[2016-07-19 23:45] VITALS: BP 132/60
[2016-07-20 02:20] VITALS: BP 128/64
[2016-07-20 06:03] VITALS: BP 136/68
--- NOTE | 2016-07-20 08:17 | PN- Housestaff ---
Subjective Follow-up For: right third toe osteomyelitis and tight foot cellulitis Subjective: Patient was seen and examined this morning, no overnight events. Vitals are stable. Patient reported pain of right foot that is controlled with medication. Patient reported diarrhea, no blood or mucous, no abdominal pain, no N/V. Patient has good oral intake. Review of Systems Constitutional: Reports: see HPI. Objective Last 24 Hrs of Vital Signs/I&O Vital Signs Date Time Temp Pulse Resp B/P Pulse O2 O2 Flow FiO2 Ox Delivery Rate 07/20 0800 Room Air 07/20 0603 97.6 72 16 136/68 95 Room Air 07/20 0220 98.1 78 18 128/64 96 07/19 2345 98.0 82 18 132/60 95 Room Air 07/19 1957 98.2 79 18 126/60 97 Room Air 07/19 1755 97.9 79 20 124/60 93 Room Air 07/19 1600 97.4 70 16 162/70 98 Room Air Room Air 07/19 1426 97.9 80 20 118/62 96 Intake & Output 07/20 1600 07/20 0800 07/20 0000 Intake Total 700 225 Output Total 525 250 Balance 175 -25 Intake, IV 600 125 Intake, Oral 100 100 Output, Urine 525 250 Physical Exam General Appearance: Alert, Oriented X3, Cooperative Skin: No Rashes, No Breakdown, No Significant Lesion HEENT: Atraumatic, PERRLA, EOMI, Mucous Membr. moist/pink Neck: Supple Cardiovascular: Regular Rate, Normal S1, Normal S2, No Murmurs Lungs: Clear to Auscultation, Normal Air Movement Abdomen: Normal Bowel Sounds, Soft, No Tenderness Neurological: Normal Gait, Normal Speech, Strength at 5/5 X4 Ext, Normal Tone, Sensation Intact, Cranial Nerves 3-12 NL, Reflexes 2+ Extremities: No Clubbing, No Cyanosis, No Edema, Normal Pulses Assessment/Plan Assessment: 86-year-old gentleman with a PMH of peripheral neuropathy, osteoarthritis, PVD/ PAD S/P left popliteal to posterior tibial artery bypass in the setting of left great toe gangrene (02/16/2016), recent angiogram on 07/11/2016 for right middle toe infection who presents with complaints of worsening pain and redness in his toe. VS admission: BP 156/76, HR 92, RR 18, SPO2 97% on RA, T 97.5 Pertinent labs: WBC 5.5, H&H 13.4/39.6, platelets 209, BUN/CR 17/0.8, glucose 187 CRP: > 15.0 ESR: 63 Lipid panel shows LDL of 67 and HDL of 42. PT:12.2, INR 1.16. Problem list: 1. Right middle toe cellulitis/osteomyelitis 2. PVD/PAD with recent angiogram 3. Pain management 4. physical therapy Plan: * If spikes fever send blood culturex2 * S/P DEBRIDEMENT ON 07/16/16, we started him on IV antibiotics on 07/16/16 (Unasyn 1.5 g every 6h) per ID suggestions. Preliminary report of the culture shows staph aureus, will switch to oral ABx, Augmentin on discharge to complete 7 days * POD#1, patient had right foot wound closure yesterday with Dr. Elizabeth, patient reported feeling fine and pain is controlled with medication * Vascular surgery is on board, eliezer follow recommendations. * Pain management with Tylenol, Percocet, morphine for escalating pain * Continue with aspirin 81 mg and Plavix 75 mg daily for history of PVD * PT cleared the patient to go home with PT, based on the attending's recommendation, PT reevaluation was ordered, as patient has no assistance at home. * DVT prophylaxis: No ALPs in the setting of PVD. * CODE STATUS: DNR/DNI Problem List: 1. Acute osteomyelitis of toe of right foot 2. PAD (peripheral artery disease) 3. Pain management Pain Ratin Pain Location: Right foot pain Pain Goal: Pain 4 or less Pain Plan: Pain management with Tylenol, Percocet, morphine for escalating pain Tomorrow's Labs & Rationales: None Consulting Request: Consulting Specialty: Podiatry
--- NOTE | 2016-07-20 13:11 | PN- Att Addend ---
Attending Addendum Attending Brief Note Mr. Antoine was interviewed, examined, and his EHR reviewed. He notes some pain in his right foot which is controlled by oral analgesics. He remains afebrile with stable vital signs. His physical exam remains benign. His postoperative dressing is clean and dry. Of concern is a pathology report which is unclear as to any residual osteomyelitis. I have discussed this with Roc Du MD and he will contact Dr. Elizabeth to further clarify things. In addition I think it appropriate to have physical therapy reevaluate the patient as he will be going home and there will be no assistance at that location.
[2016-07-20 15:05] VITALS: BP 110/56
[2016-07-20 22:26] VITALS: BP 138/62
[2016-07-21 07:01] VITALS: BP 112/60
--- NOTE | 2016-07-21 08:16 | PN- Housestaff ---
CYDNEY DERAS,[facility] 07/21/16 0816: Subjective Follow-up For: Right third toe osteomyelitis and tight foot cellulitis Subjective: Patient was seen and examined this morning, no overnight events. Vitals are stable. Patient offered no new complaints. Pain is well controlled with medication, patient had PT session this morning with no issues. Review of Systems Constitutional: Reports: see HPI. Objective Last 24 Hrs of Vital Signs/I&O Vital Signs Date Time Temp Pulse Resp B/P Pulse O2 O2 Flow FiO2 Ox Delivery Rate 07/21 0800 98 07/21 0701 97.2 70 18 112/60 98 Room Air 07/20 2226 98.5 69 18 138/62 98 Room Air 07/20 1505 98.1 63 20 110/56 97 Intake & Output 07/21 1600 07/21 0800 07/21 0000 Intake Total 100 1030 Output Total 450 500 Balance -350 530 Intake, IV 550 Intake, Oral 100 480 Output, Urine 450 500 Physical Exam General Appearance: Alert, Oriented X3, Cooperative, No Acute Distress Skin: No Rashes HEENT: Atraumatic, PERRLA, EOMI, Mucous Membr. moist/pink Neck: Supple Cardiovascular: Regular Rate, Normal S1, Normal S2, No Murmurs Lungs: Clear to Auscultation, Normal Air Movement Abdomen: Normal Bowel Sounds, Soft, No Tenderness Neurological: Normal Speech, Strength at 5/5 X4 Ext, Normal Tone, Sensation Intact, Cranial Nerves 3-12 NL, Reflexes 2+ Extremities: No Clubbing, No Cyanosis, No Edema, Normal Pulses Assessment/Plan Assessment: 86-year-old gentleman with a PMH of peripheral neuropathy, osteoarthritis, PVD/ PAD S/P left popliteal to posterior tibial artery bypass in the setting of left great toe gangrene (02/16/2016), recent angiogram on 07/11/2016 for right middle toe infection who presents with complaints of worsening pain and redness in his toe. VS admission: BP 156/76, HR 92, RR 18, SPO2 97% on RA, T 97.5 Pertinent labs: WBC 5.5, H&H 13.4/39.6, platelets 209, BUN/CR 17/0.8, glucose 187 CRP: > 15.0 ESR: 63 Lipid panel shows LDL of 67 and HDL of 42. PT:12.2, INR 1.16. Problem list: 1. Right middle toe cellulitis/osteomyelitis 2. PVD/PAD with recent angiogram 3. Pain management 4. physical therapy Plan: * If spikes fever send blood culturex2 * S/P DEBRIDEMENT ON 07/16/16, we started him on IV antibiotics on 07/16/16 (Unasyn 1.5 g every 6h) per ID suggestions. Preliminary report of the culture shows staph aureus, will switch to oral ABx, Augmentin on discharge to complete 7 days * POD#2, patient had right foot wound closure yesterday with Dr. Elizabeth, patient reported feeling fine and pain is controlled with medication * Vascular surgery is on board, eliezer follow recommendations. * Pain management with Tylenol, Percocet, morphine for escalating pain * Continue with aspirin 81 mg and Plavix 75 mg daily for history of PVD * PT cleared the patient to go home with PT, based on the attending's recommendation, PT reevaluation was ordered, as patient has no assistance at home. * PT recommendation for short-term rehabilitation * DVT prophylaxis: No ALPs in the setting of PVD. * CODE STATUS: DNR/DNI Problem List: 1. Acute osteomyelitis of toe of right foot 2. PAD (peripheral artery disease) 3. Pain management Pain Ratin Pain Location: Bilateral lower extremity Pain Goal: Pain 4 or less Pain Plan: Severe pain pathway Tomorrow's Labs & Rationales: PHYSICAL MEDICINE PHYSICIAN, CMP Consulting Request: Consulting Specialty: Podiatry EVELYN MOSS MD 07/21/16 1352: Attending Review Statement Attending Statement Attending MD Statement: examined this patient, agreed w/resident/PA/PATROL CAPTAIN, reviewed EMR data (avail), amended to note Attending Assessment/Plan: Mr. Antoine noted some foot discomfort last night it was adequately resolved with oral analgesia. He has no complaints today. He is afebrile with stable vital signs. Physical exam is unchanged and benign. His dressing remains clean and dry. Review of his CVC and other laboratory values reveal limb also to be benign. Physical therapy evaluation set patient would benefit from continued physical therapy and short-term rehabilitation. At present we will continue her intravenous antibiotics pending resolution of this discrepancy between his upper report and his pathology report. Physical therapy will be continued. A short-term rehabilitation bed search is underway.
[2016-07-21 15:40] VITALS: BP 148/86
[2016-07-21 22:46] VITALS: BP 150/68
--- NOTE | 2016-07-22 07:10 | PN- Housestaff ---
TONY DERAS,[facility] 07/22/16 0710: Subjective Follow-up For: right foot osteomyelitis Subjective: I saw and examined the patient at bedside, he is lying in bed, alert and oriented, in no distress. reports no pain in the right foot and pain in the left calf has subsided. he experienced the pain in the calf once on Friday when walking and it has not happened again, except for once while in bed today. Review of Systems Constitutional: Denies: chills, fever. 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 Cardiovascular: Denies: chest pain, palpitations. Gastrointestinal: Denies: abdominal pain, changes in stool (diarrhea has resolved). Genitourinary: Reports: no symptoms. Musculoskeletal: Reports: no symptoms. Skin: Reports: no symptoms. Neurological/Psychological: Reports: no symptoms. Hematologic/Endocrine: Reports: no symptoms. Objective Last 24 Hrs of Vital Signs/I&O Vital Signs Date Time Temp Pulse Resp B/P Pulse O2 O2 Flow FiO2 Ox Delivery Rate 07/22 0721 98.1 78 18 140/60 95 07/21 2246 98.2 81 18 150/68 97 Room Air 07/21 1540 97.4 78 20 148/86 99 Intake & Output 07/22 1600 07/22 0800 07/22 0000 Intake Total 850 500 Output Total 300 200 Balance 550 300 Intake, IV 600 Intake, Oral 250 500 Output, Urine 300 200 Physical Exam General Appearance: Alert, Oriented X3, Cooperative, No Acute Distress Skin: No Breakdown, right foot osteomyelitis and cellulitis with necrotic tissues debrided and dressing at the site is changes every other day. HEENT: Atraumatic, left eye deviated laterally, right eye EMOI Neck: Supple, No JVD Cardiovascular: Regular Rate, Normal S1, Normal S2 Lungs: Clear to Auscultation, Normal Air Movement Abdomen: Soft, No Tenderness Neurological: Normal Speech, Normal Tone Extremities: No Edema, Normal Pulses, No Tenderness/Swelling Vascular: Pulses Symmetrical Current Medications: Current Medications Sig/Ramon Start time Last Medication Dose Route Stop Time Status Admin Acetaminophen 650 MG Q6P PRN 07/14 1915 AC 07/17 PO 1319 Ampicillin Sodium/ 1,500 MG Q6 07/16 1800 AC 07/22 Sulbactam Sodium IV 0510 Sodium Chloride 100 ML Aspirin 81 MG DAILY 07/15 1000 AC 07/21 PO 0946 Clopidogrel Bisulfate 75 MG DAILY 07/15 1000 AC 07/21 PO 0946 Magnesium Oxide 400 MG DAILY 07/15 1000 AC 07/21 PO 0946 Morphine Sulfate 2 MG Q4P PRN 07/14 1915 DC 07/15 IV 0937 Oxycodone/ 2 TAB Q6P PRN 07/15 1215 AC 07/20 Acetaminophen PO 2313 Sodium Chloride 1,000 ML Q13H 07/19 1100 DC 07/21 IV 1903 Last 24 Hrs of Lab/Justin Results Last 24 Hrs of Labs/Mics: Laboratory Tests 07/22/16 0730: Sodium Pending, Potassium Pending, Chloride Pending, Carbon Dioxide Pending, Anion Gap Pending, BUN Pending, Creatinine Pending, BUN/Creatinine Ratio Pending , CBC w Diff Pending, WBC Pending, RBC Pending, Hgb Pending, Hct Pending, MCV Pending, MCH Pending, RDW Pending, Plt Count Pending, MPV Pending, PUBS MCHC Pending Assessment/Plan Assessment: 86-year-old gentleman with a PMH of peripheral neuropathy, osteoarthritis, PVD/ PAD S/P left popliteal to posterior tibial artery bypass in the setting of left great toe gangrene (02/16/2016), recent angiogram on 07/11/2016 for right middle toe infection who presents with complaints of worsening pain and redness in his toe. VS admission: BP 156/76, HR 92, RR 18, SPO2 97% on RA, T 97.5 Pertinent labs: WBC 5.5, H&H 13.4/39.6, platelets 209, BUN/CR 17/0.8, glucose 187 CRP: > 15.0 ESR: 63 Lipid panel shows LDL of 67 and HDL of 42. PT:12.2, INR 1.16. Problem list and plan: Right 3rd toe cellulitis/osteomyelitis Patient has been afebrile during his stay, S/Pdebridement by Dr. Elizabeth on 07/16 and on 07/19/16. we started him on IV antibiotics on 07/16/16 (Unasyn 1.5 g every 6h) per ID suggestions, will continue with oral Augmentin upon discharge to cover for 1 week after second debridement (Friday07/26/16) * Patient will follow up with Dr. Elizabeth on Friday next week * He will check ESR on 07/25/[address] Moss and Dr. Du will be copied * Instructions for wound care will be sent to the STR by Dr. Elizabeth PVD/PAD with recent angiogram Vascular surgery saw the patient, arterial doppler of the lower extremities was unremarkable, will continue aspirin and plavix, they have no further recommendations at this point. Patient reported left calf pain on 07/19/16 after he walked one round on the floor, he has not been ambulating as much as he would usually do at home because of the pain on the right foot, he only puts his heel on the floor on the right side while walking. Left lower exteremity exam revealed normal pulses, was warmth with good capillary filling, however it appeared slightly more swlollen, venous doppler was ordered on Friday and was negative for DVT. Today patient reports he did not have any pain again, execpt or one minor episode while at rest. * continue aspirin and plavix Pain management Tylenol for mild pain, percocet for moderate to severe pain. Physical therapy recommended STR. Heart Healthy diet DVT prophylaxis: No ALPs in the setting of PVD. CODE STATUS: DNR/DNI Problem List: 1. Acute osteomyelitis of toe of right foot 2. PAD (peripheral artery disease) 3. Pain management Pain Ratin Pain Location: right foot and left calf Pain Goal: Pain 4 or less Pain Plan: tylenol for mild pain, percocet for mod-severe pain Tomorrow's Labs & Rationales: none Consulting Request: Consulting Specialty: Podiatry EVELYN MOSS MD 07/22/16 1301: Attending MD Review Statement Attending Statement Attending MD Statement: examined this patient, agreed w/resident/PA/CARDIAC REHAB NURSE, reviewed EMR data (avail), discussed with case mgmt, amended to note Attending Assessment/Plan: Mr. Antoine has no complaints today. He denies pain in his right foot. He stated that he was able to complete physical therapy today without difficulty. She remains afebrile. His vital signs are stable. Cardiovascular, pulmonary, and abdominal exams are benign. His surgical dressing remains clean and dry. He has no leukocytosis. Pathology review from his surgery on July 19 his pending. Mr. Antoine is stable at this time and may be transferred to short-term rehabilitation. As per Roc Du MD he should receive Timentin through July 26 to complete a seven-day course of antibiotic after his last procedure. We anticipate transfer to [facility] later today. We will follow him in the office once he is discharged from short-term rehabilitation. We anticipate transfer to [facility] later today. We will follow him in the office once he is discharged from short-term rehabilitation.
[2016-07-22 07:21] VITALS: BP 140/60
[2016-07-22 08:49] LABS: ABSOLUTE BASOPHIL COUNT 0 /CUMM (0.0-0.2); ABSOLUTE EOSINOPHIL COUNT 0.1 /CUMM (0.0-0.7); ABSOLUTE GRANULOCYTE CT 2.7 /CUMM (1.4-6.5); ABSOLUTE LYMPH COUNT 0.9 /CUMM (1.2-3.4); ABSOLUTE MONOCYTE COUNT 0.3 /CUMM (0.10-0.60); BASOPHIL % 0.4 % (0.0-2.0); EOSINOPHIL % 1.7 % (0-5); GRANULOCYTE % 67.8 % (42.2-75.2); HEMATOCRIT 33.4 % (42-52); MEAN CORPUSCULAR HGB 28.3 PG (27.0-31.0); MEAN CORPUSCULAR HGB CONC 33.8 G/DL (33.0-37.0); MEAN CORPUSCULAR VOLUME 83.8 FL (80.0-94.0); MEAN PLATELET VOLUME 6.5 FL (7.4-10.4); PLATELET COUNT 193 /CUMM (130-400); RBC DISTRIBUTION WIDTH 14.4 % (11.5-14.5); RED BLOOD CELL CT 3.98 /CUMM (4.70-6.10)
[2016-07-22 15:34] VITALS: BP 140/60
[2016-07-22 15:35] VITALS: BP 132/62
== END 2016-07-22 16:40 | DRG 465 ==
LOC: ENRESERVTM → ENRESERVDT → ERH 15:13 → 2NA 17:43 → ERHI 17:43 → 2NA 20:06
PROVIDERS: Emergency Medicine; Internal Medicine; Ophthalmology; Student in an Organized Health Care Education/Training Program; ADMIT Internal Medicine
PROC: 0QBQ0ZX Excision of Right Toe Phalanx, Open Approach, Diagnostic (ICD-10-PCS; principal; 2016-07-16)
PROC: 0QBQ0ZX Excision of Right Toe Phalanx, Open Approach, Diagnostic (ICD-10-PCS; 2016-07-19)
PROC: 0HXMXZZ Transfer Right Foot Skin, External Approach (ICD-10-PCS; 2016-07-19)
DX: M86.171 Other acute osteomyelitis, right ankle and foot (principal); G62.9 Polyneuropathy, unspecified; L97.519 Non-pressure chronic ulcer of other part of right foot with unspecified severity; L03.031 Cellulitis of right toe; B95.61 Methicillin susceptible Staphylococcus aureus infection as the cause of diseases classified elsewhere; I73.9 Peripheral vascular disease, unspecified
CPT/HCPCS: 2NASP; 75657; 87070; 87075; 87184; 36415; 73630-RT; 82436; 87040; 87147; 88304; 88305; 93005; 93010; 93970; 96374; 97110-GO; 97116-GO; J2001; J2405; J3490

== ENCOUNTER → 2016-08-16 | Day surgery (SDC) | payer OTHER, MEDICARE ==
--- NOTE | 2016-08-15 11:49 | History & Physical Pre-Op ---
General Information and HPI History of Present Illness: Mr. Antoine is an 86-year-old male who is status post recent digital amputation with a wound dehiscence an underlying infection. Patient will require a revision and closure of his dehisced wound. The patient has significant peripheral arterial disease and is status post arterial reconstruction with Dash Bolton MD. Allergies/Medications Allergies: Coded Allergies: No Known Allergies (03/13/16) Home Med list Amoxicillin/Potassium Clav (Augmentin 875-125 Tablet) 875 MG-125 MG TABLET 1 TAB PO BID Cellulitis please take one Tab in the morning and one in the evening until end of this week, Friday07/26/16. Aspirin (Aspirin*) 81 MG TAB.CHEW 1 TAB PO DAILY HEART HEALTH (Reported) Clopidogrel Bisulfate (Plavix) 75 MG TABLET 1 TAB PO DAILY anti clot Docusate Sodium (Stool Softener) 100 MG CAPSULE 1 CAP PO DAILY STOOL SOFTENER (Reported) Magnesium Oxide 400 MG TABLET 1 TAB PO DAILY HEART (Reported) Oxycodone HCl/Acetaminophen (Oxycodone-Acetaminophen 5-325) 5 MG-325 MG TABLET 1 TAB PO BID PRN PAIN SCALE 7-10 (SEVERE) (Reported) Past History Medical History Neurological: peripheral neuropathy, RAYNAUD'S EENT: NONE Cardiovascular: PVD Respiratory: NONE Gastrointestinal: NONE Hepatic: NONE Renal: NONE Musculoskeletal: ARTHRITIS Psychiatric: NONE Endocrine: NONE Blood Disorders: NONE 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 Ambulation: independent IADLs Independent: shopping, housework, finances, food prep, telephone, transportation , medication admin. Review of Systems Review of Systems: Unremarkable except for that noted in history of present illness Exam & Diagnostic Data Last 24 Hrs of Vital Signs/I&O Intake & Output 08/15 1600 04/06 0800 04/ 0000 Intake Total Output Total Balance Patient 175 lb Weight Physical Exam: Lungs clear bilaterally. Heart sounds rate and rhythm regular. Lower extremity physical exam demonstrates intact pedal pulses bilaterally. Both dorsalis pedis and posterior tibial arteries are weakly palpable bilaterally. Patient without any significant sensory deficit bilaterally. Full-thickness necrotic wound noted to the distal stump of the right digital amputation site. There is bone noted at the central aspect of the wound bed. Minimal amount of serous drainage identified. Necrotic slough overlying an ischemic wound bed. Assessment/Plan Assessment/Plan: Wound dehiscence with underlying osteomyelitis. A lengthy discussion reviewing both surgical and conservative options was held the patient at bedside and the patient elects to go forward with surgery despite the risks. As Ranked By This Provider Problem List: 1. Other acute osteomyelitis, right ankle and foot Attending MD Review Statement Attending Statement Attending MD Statement: examined this patient
[~2016-08-16] VITALS: Ht 182.9 cm; Wt 79.4 kg
[~2016-08-16] MED LIST changes: +AUGMENTIN 875-1 EACH PO; +OXYCODONE-ACET1 EACH PO; +STOOL SOFTENER100 M3 PO
--- NOTE | 2016-08-16 12:41 | Operative Report ---
Operative/Inv Procedure Report Surgery Date: 08/16/16 Name of Procedure: 1 revisional incision and drainage deep to the D fashion with exposure of the extensor and flexor tendon and tendon sheath multiple sites for a wound dehiscence right foot 2 closure of open surgical wound with local random advancement flap 3 intraoperative administration of ankle block anesthesia 4 excisional debridement Pre-Operative Diagnosis: 1 infected wound dehiscence right foot 2 osteomyelitis right foot 3 severe peripheral arterial disease Post-Operative Diagnosis: Same Estimated Blood Loss: less than 50ml Surgeon/Engagement Specialist: JEFF VANEGAS DPM Anesthesia: moderate sedation, block Operative/Procedure Note Note: After obtaining informed consent the patient was brought to the operating room and placed on the operating table in the supine position. The patient isn't securely fastened to the operating table utilizing safety belt. After administration of IV sedation, 10 mL of 0.5% Marcaine plain was infiltrated about the patient's right ankle. The right foot and ankle within scrubbed prepped and draped in usual aseptic manner. Attention directed distal right foot where a large full-thickness necrotic wound associated with an underlying wound dehiscence was identified. A 15 blade was utilized sharply revised skin margins. He dissection was then carried down deep to the D fashion with exposure of the extensor and flexor tendon and tendon sheath multiple sites, both proximally and distally. All necrotic nonviable infected tissue sharply evacuated from the wound bed. He dissection was then carried down to the capture structures where the distal osseous segment was freed and passed from the operative field. He was sent for pathologic inspection. Nipple was then irrigated with 3 L of normal sterile saline infusion 50,000 units of bacitracin. Following this, the foot was redraped and the surgeon's top gloves were exchanged for clean gloves. Any bleeding vessels identified were cauterized or ligated as encountered. A dorsal medial dorsal lateral flap was then developed with undermining, mobilization and advancement adjacent tissue. The dorsal lateral flap was rotated centrally and secured with 3-0 Vicryl. The dorsal medial flap was similarly rotated and again secured at its deep side with 3-0 Vicryl. Subtenons tissues reapproximated 4-0 Vicryl and the skin edges reapproximated 3-0 nylon. Incision was dressed with Xeroform 4 x 4's Kerlix and an Ethan wrap. The patient was noted tolerate both procedure and anesthesia well and the patient was transported from the operating room to recovery by sent stable best assess intact noted to both the dorsal lateral dorsal medial flaps.
== END ==
LOC: STS 01:54
DX: M86.171 Other acute osteomyelitis, right ankle and foot (principal); T87.81 Dehiscence of amputation stump; I73.9 Peripheral vascular disease, unspecified; Z89.421 Acquired absence of other right toe(s); I73.00 Raynaud's syndrome without gangrene
CPT/HCPCS: 88304; J0690; J1885; J2250